=== PATIENT | male | born 1960 | race Caucasian/White ===

== ENCOUNTER → 2020-03-07 13:24 | Outpatient (BNVA) | payer OTHER, SELFPAY | PROVIDERS: Family Provider Internal Medicine; PCP Internal Medicine; Referring Provider Family Medicine; Visit Provider Anesthesiology Pain Medicine | DX: C34.82 Malignant neoplasm of overlapping sites of left bronchus and lung (principal); M54.9 Dorsalgia, unspecified; I10 Essential (primary) hypertension; I25.10 Atherosclerotic heart disease of native coronary artery without angina pectoris; F17.210 Nicotine dependence, cigarettes, uncomplicated; Z79.891 Long term (current) use of opiate analgesic | CPT/HCPCS: 99204 ==

== ENCOUNTER 2020-03-15 12:17 | Emergency (ER) | payer OTHER, SELFPAY ==
[2020-03-15 12:50] VITALS: BP 162/94; PULSE 98; RESP 18; TEMP 36.6; O2SAT 98; BMI 18.6
--- NOTE | 2020-03-15 12:57 | CTR_ITS ---
PROCEDURE INFORMATION: Exam: CT Angiography Chest With Contrast Exam date and time: 03/15/2020 1:45 PM Age: 60 years old Clinical indication: Cough with hemorrhage; Prior surgery; Surgery date: 6+ months; Surgery type: L lung; Patient HX: HX of lung CA now w hemoptysis and SOB; Additional info: SOB, hemoptysis TECHNIQUE: Imaging protocol: Computed tomographic angiography of the chest with intravenous contrast. 3D rendering: MIP and/or 3D reconstructed images were created by the technologist. Radiation optimization: All CT scans at this facility use at least one of these dose optimization techniques: automated exposure control; mA and/or kV adjustment per patient size (includes targeted exams where dose is matched to clinical indication); or iterative reconstruction. Contrast material: OMNI 350; Contrast volume: 95 ml; Contrast route: 20G; COMPARISON: CTA Chest-Pulmonary Emb [id number] 12/04/2018 10:29 AM RADIATION DOSE METRICS: Total DLP: 541.44 mGy-cm FINDINGS: Pulmonary arteries: Normal. No pulmonary emboli. Aorta: Unremarkable. No aortic aneurysm. No aortic dissection. Lungs: Prior left pneumonectomy. Pronounced emphysema in the remaining right lung, especially the right upper lobe. 4.5 mm calcified granuloma right lung base. No acute infiltrate or worrisome pulmonary mass. Pleural space: Unremarkable. No pneumothorax. No pleural effusion. Heart: Unremarkable. No cardiomegaly. No pericardial effusion. Lymph nodes: Partially calcified right hilar and mediastinal lymph nodes. Bones/joints: Unremarkable. No acute fracture. Soft tissues: Unremarkable. CT/CT angio chest PE protcl [id number] IMPRESSION: 1.) No acute PE or acute infiltrate evident. 2.) Prior left pneumonectomy. Emphysema. Radiation Dose CTDIVOL = (mGy): DLP = 541.44 (mGy-cm)
--- NOTE | 2020-03-15 12:57 | XRR_ITS ---
PROCEDURE INFORMATION: Exam: XR Chest, 1 View Exam date and time: 03/15/2020 1:07 PM Age: 60 years old Clinical indication: Dyspnea; Prior surgery; Surgery date: 6+ months; Surgery type: Lung; Additional info: SOB, hemoptysis TECHNIQUE: Imaging protocol: XR of the chest Views: 1 view. COMPARISON: CR Chest 1 [place] [id number] 12/04/2018 9:57 AM FINDINGS: Lungs: There are small calcified pulmonary nodules in the right lower lung, as seen on prior chest CT 12/04/2018. There is marked centrilobular emphysema with hyperlucency in the apices, greatest in the left hemithorax. Left pneumonectomy. Pleural space: No pneumothorax. No pleural effusion. Heart/Mediastinum: Cardiomediastinal contours are obscured. There is marked leftward mediastinal shift. Bones/joints: Bones are unremarkable. XR/XR chest 1V portable [id number] IMPRESSION: 1. No acute findings. 2. Left pneumonectomy. Severe centrilobular emphysema. No consolidation.
--- NOTE | 2020-03-15 13:32 | ED_ITS ---
HPI - General Adult General: Chief complaint: General Medical Stated complaint: coughing up blood Time Seen by Provider: 03/15/20 12:56 History of Present Illness: HPI narrative: This patient is a 60 year old male presenting with a complaint of coughing up blood. he reports that this has been happening for about a month - he has had 4 or 5 days during the month when it happens multiple times each day. The blood is in quarter or half dollar sized clots. He is very nonchalant about it, and says that his made him come in. He has a history of lung cancer and had his left lung removed in 2007. He continues to smoke 2 packs per day. He follows with a world travel counselor in [place]. Today he has coughed up 4 or 5 good sized clots. He complains of pain all over and says that is his normal day to day pain. He is on plavix and has a history of bad heart disease as well. Onset (ago): month(s) Associated symptoms: Reports chest pain, dyspnea and malaise; Deny headache(s), nausea, rash or vomiting Review of Systems General: Reports: 10 or more systems reviewed and unremarkable except in HPI and below Const: Reports: fatigue and malaise; Denies: fever(s) or chills Eyes: Denies: change in vision ENMT: Denies: odynophagia Card: Reports: chest pain; Denies: swelling of feet/ankles Resp: Reports: dyspnea, productive cough and hemoptysis GI: Denies: abdominal pain, nausea or vomiting : Denies: flank pain Musc: Denies: neck pain or back pain Skin/Breast: Denies: rash Neuro: Denies: headache(s), numbness in extremities or weakness in extremities [place]/Lymph: Denies: easy bruising or easy bleeding PFSH ED PFSH: Medical History Cardiac arrhythmia COPD (chronic obstructive pulmonary disease) Coronary artery disease Crohn disease Fatigue Hyperlipemia Hypertension Lung cancer Surgical History History of appendectomy History of lung surgery Hx of tonsillectomy Family History Other Cancer Diabetes Social History Smoking and tobacco status: current every day smoker Alcohol intake: never Physical Exam Const: COMMON NORMALS: no acute distress, patient oriented x3, no limitations and alert GENERAL APPEARANCE: cooperative and comfortable HENMT: HEAD & SCALP: normal to inspection FACE & SINUS: normal facial exam Eye: GENERAL EYE: appearance normal, both eyes and all related structures Neck/C-Spine: COMMON NORMALS: supple, no meningeal signs and no JVD Chest: COMMONS NORMALS: normal inspection of the chest Resp: COMMON NORMALS: normal respiratory effort and No use of accessory muscles AUSCULTATION: breath sounds absent on th left Cardio: COMMON NORMALS: no JVD, regular rate, regular rhythm and No murmurs present (Cardio) RATE: regular rate RHYTHM: regular rhythm GI: COMMON NORMALS: Normal to inspection, nondistended, normoactive bowel sounds present, Soft to palpation and non-tender INSPECTION: Yes normal to inspection AUSCULTATION: Yes normoactive bowel sounds PALPATION: Yes Soft to palpation Back/Pelvis: COMMON NORMALS: thoracic and lumbar spine normal to inspection Extremity: COMMON NORMALS: normal to inspection Neuro: COMMON NORMALS: patient oriented x3, moves all extremities, no focal motor deficits and no sensory deficits noted SENSORIUM/ORIENTATION: Yes alert MENINGEAL SIGNS: Yes no meningeal signs Psych: COMMON NORMALS: mental status grossly normal, cooperative and normal affect Skin: COMMON NORMALS: no rashes or lesions noted and turgor normal GENERAL SKIN EXAM: no rashes or lesions noted and turgor normal Course ED course: Patient was stable in the ED. CT did not show any findings to explain the hemoptysis. We discussed that it might possibly be coming from sinuses. He understands the need to follow-up for further evaluation and an ENT exam. He wanted to go home and was kind of irritated to be here in the first place and had only come in because his family made him. Vital Signs: Vital signs: Vital Signs Temperature 97.9 F 03/15/20 12:50 Pulse Rate 101 H 03/15/20 15:51 Respiratory Rate 20 H 03/15/20 15:51 Blood Pressure 183/101 03/15/20 15:51 Pulse Oximetry 98 03/15/20 15:51 MDM - General Adult Lab Data: Labs: Lab Results 03/15/20 03/15/20 03/15/20 Range/Units 13:15 13:15 13:15 WBC 9.7 (4.0-10.0) 10^3/ uL RBC 4.73 (4.1-5.3) 10^6/u L Hgb 14.9 (11.7-16.6) g/dL Hct 47.0 (42.0-52.0) % MCV 99.4 H (80-94) fL MCH 31.5 (28.0-34.0) pg MCHC 31.7 (30.0-36.0) g/dL RDW 14.4 (12.1-15.1) % Plt Count 243 (130-400) 10^3/c mm MPV 10.1 (7.4-10.4) fL Neut % (Auto) 73.7 % Lymph % (Auto) 18.3 % [place] % (Auto) 6.2 % Eos % (Auto) 0.8 % Baso % (Auto) 0.6 % Neut # (Auto) 7.2 (1.8-7.7) 10^3/u L Lymph # (Auto) 1.8 (0.8-4.8) 10^3/u L [place] # (Auto) 0.6 (0.2-0.9) 10^3/u L Eos # (Auto) 0.1 (0.0-0.8) 10^3/u L Baso # (Auto) 0.1 (0.0-0.1) 10^3/u L Nucleated RBC % (a uto) 0 % Nucleated RBCs # 0.0 /100WBC PT 11.90 (10.5-13.3) SECO NDS INR 0.86 (0.8-1.2) Sodium 137 (136-145) mmol/L Potassium 4.0 (3.5-5.1) mmol/L Chloride 101 (98-107) mmol/L Carbon Dioxide 23 (22-29) mmol/L Anion Gap 17.0 (5-19) BUN 8 (8-23) mg/dL Creatinine 0.8 (0.7-1.2) mg/dL GFR Calculation 98.0 (90-130) mL/min Glucose 170 H (65-115) mg/dL Calculated Osmolal ity 284 L (285-295) mOsm/k g Lactic Acid (0.5-2.2) mmol/L Calcium 10.3 (8.5-10.5) mg/dL Total Bilirubin 0.4 (0.15-1.2) mg/dL AST 17 (0-40) U/L ALT 10 (0-41) U/L Alkaline Phosphata se 57 (40-130) IU/L Total Protein 7.4 (6.6-8.7) g/dL Albumin 4.4 (3.5-5.2) g/dL Globulin 3.0 (1.3-4.6) g/dL Blood Type Rho(D) Type Antibody Screen 03/15/20 03/15/20 Range/Units 13:20 14:30 WBC (4.0-10.0) 10^3/ uL RBC (4.1-5.3) 10^6/u L Hgb (11.7-16.6) g/dL Hct (42.0-52.0) % MCV (80-94) fL MCH (28.0-34.0) pg MCHC (30.0-36.0) g/dL RDW (12.1-15.1) % Plt Count (130-400) 10^3/c mm MPV (7.4-10.4) fL Neut % (Auto) % Lymph % (Auto) % [place] % (Auto) % Eos % (Auto) % Baso % (Auto) % Neut # (Auto) (1.8-7.7) 10^3/u L Lymph # (Auto) (0.8-4.8) 10^3/u L [place] # (Auto) (0.2-0.9) 10^3/u L Eos # (Auto) (0.0-0.8) 10^3/u L Baso # (Auto) (0.0-0.1) 10^3/u L Nucleated RBC % (a uto) % Nucleated RBCs # /100WBC PT (10.5-13.3) SECO NDS INR (0.8-1.2) Sodium (136-145) mmol/L Potassium (3.5-5.1) mmol/L Chloride (98-107) mmol/L Carbon Dioxide (22-29) mmol/L Anion Gap (5-19) BUN (8-23) mg/dL Creatinine (0.7-1.2) mg/dL GFR Calculation (90-130) mL/min Glucose (65-115) mg/dL Calculated Osmolal ity (285-295) mOsm/k g Lactic Acid 1.4 (0.5-2.2) mmol/L Calcium (8.5-10.5) mg/dL Total Bilirubin (0.15-1.2) mg/dL AST (0-40) U/L ALT (0-41) U/L Alkaline Phosphata se (40-130) IU/L Total Protein (6.6-8.7) g/dL Albumin (3.5-5.2) g/dL Globulin (1.3-4.6) g/dL Blood Type A Positive Rho(D) Type Positive Antibody Screen Negative Discharge Plan Discharge Patient Disposition: Home, Self-Care Clinical Impression: Hemoptysis Condition: Stable Prescriptions: No Action hydralazine 25 mg tablet 25 mg PO TID 30 Days Qty: 90 RF: 5 amlodipine 10 mg tablet 10 mg PO DAILY RF: 0 ranolazine [Ranexa] 1,000 mg tablet extended release 12 hr 1,000 mg PO BID RF: 0 nitroglycerin [Nitrostat] 0.4 mg tablet, sublingual 0.4 mg SUBLINGUAL Q5M PRN (Reason: Chest Pain) RF: 0 isosorbide mononitrate 120 mg tablet extended release 24 hr 90 mg PO DAILY RF: 0 atorvastatin 80 mg tablet 80 mg PO DAILY RF: 0 ropinirole 1 mg tablet 3 mg PO DAILY RF: 0 mirtazapine 30 mg tablet 30 mg PO DAILY RF: 0 guaifenesin 400 mg tablet 400 mg PO Q4H PRN (Reason: Congestion) RF: 0 cholecalciferol (vitamin D3) 2,000 unit tablet 2,000 unit PO DAILY RF: 0 albuterol sulfate [Proventil HFA] 90 mcg/actuation HFA aerosol inhaler 2 puff INHALATION QID PRN (Reason: Shortness Of Breath) RF: 0 clopidogrel 75 mg tablet 75 mg PO DAILY RF: 0 tamsulosin 0.4 mg capsule 0.4 mg PO DAILY RF: 0 aspirin 81 mg tablet,delayed release (DR/EC) 81 mg PO DAILY RF: 0 metoprolol tartrate 50 mg tablet 50 mg PO BID RF: 0 Spiriva Respimat 2.5 mcg/actuation mist 2 puff INHALATION QAM RF: 0 budesonide-formoterol 160-4.5 mcg/actuation HFA aerosol inhaler 2 puff INHALATION BID RF: 0 montelukast 10 mg tablet 10 mg PO DAILY RF: 0 hydrocodone-acetaminophen 7.5-325 mg tablet 1 tab PO QID PRN (Reason: cancer pain) 30 Days Qty: 120 RF: 0 lisinopril 40 mg Tablet 40 mg PO DAILY RF: 0 Creon 24,000-76,000 -120,000 unit Capsule,Delayed Release(Dr/Ec) 2 cap PO TID RF: 0 Referrals: [facility] [Primary Care Provider] - Discharge Diet: Usual diet Discharge Activity: Resume usual activity Patient Instructions: Acute Hemoptysis (ED) Activity Restrictions/Additional Instructions: Call your world travel counselor on Tuesday to discuss your symptoms and follow up. Also call your primary care physician to discuss follow up with ENT as the blood could be coming from your sinuses rather than your lungs. Return to the ED if worsening symptoms including continuous bleeding, shortness of breath, fever. Discharge Date/Time: 03/15/20 15:53 Coding Level of Care Code ED [employer] Legal Secretary for Ronald Fwremi Exam Comprehensive
[2020-03-15 13:34] LABS: Basophils # 0.1 10^3/uL (0.0-0.1); Basophils % 0.6 %; Eosinophils # 0.1 10^3/uL (0.0-0.8); Eosinophils % 0.8 %; Hemoglobin 14.9 g/dL (11.7-16.6); Lymphocytes # 1.8 10^3/uL (0.8-4.8); Lymphocytes % 18.3 %; Mean Corpuscular HGB Conc 31.7 g/dL (30.0-36.0); Mean Corpuscular Hemoglobin 31.5 pg (28.0-34.0); Mean Corpuscular Volume 99.4 fL (80-94); Mean Platelet Volume 10.1 fL (7.4-10.4); Monocytes # 0.6 10^3/uL (0.2-0.9); Monocytes % 6.2 %; Neutrophils # 7.2 10^3/uL (1.8-7.7); Neutrophils % 73.7 %; Nucleated Red Blood Cells % 0 %; Platelet Count 243 10^3/cmm (130-400); Red Blood Count 4.73 10^6/uL (4.1-5.3); Red Cell Distribution Width 14.4 % (12.1-15.1); White Blood Count 9.7 10^3/uL (4.0-10.0)
[2020-03-15 13:43] LABS: INR 0.86 (0.8-1.2)
[2020-03-15 13:52] LABS: Alanine Aminotransferase 10 U/L (0-41); Albumin Level 4.4 g/dL (3.5-5.2); Alkaline Phosphatase 57 IU/L (40-130); Aspartate Amino Transferase 17 U/L (0-40); Blood Urea Nitrogen 8 mg/dL (8-23); Calcium 10.3 mg/dL (8.5-10.5); Carbon Dioxide 23 mmol/L (22-29); Chloride 101 mmol/L (98-107); Glucose 170 mg/dL (65-115); Osmolality Calculated 284 mOsm/kg (285-295); Sodium 137 mmol/L (136-145); Total Bilirubin 0.4 mg/dL (0.15-1.2); Total Protein 7.4 g/dL (6.6-8.7)
--- NOTE | 2020-03-15 14:14 | PC.NURSE ---
patient to ct
[2020-03-15] MEDS: iohexol 350 mg/mL 100 mL Btl IV (14:18)
[2020-03-15 14:56] LABS: Lactic Sepsis W/Reflex 1.4 mmol/L (0.5-2.2)
[2020-03-15 15:51] VITALS: BP 183/101; PULSE 101; RESP 20; O2SAT 98
== END 2020-03-15 15:53 | disposition home or self-care (01) ==
PROVIDERS: Emergency Provider Emergency Medicine
DX: R04.2 Hemoptysis (principal); Z79.02 Long term (current) use of antithrombotics/antiplatelets; Z79.82 Long term (current) use of aspirin; J44.9 Chronic obstructive pulmonary disease, unspecified; I25.10 Atherosclerotic heart disease of native coronary artery without angina pectoris; E78.5 Hyperlipidemia, unspecified; I10 Essential (primary) hypertension; Z85.118 Personal history of other malignant neoplasm of bronchus and lung; F17.210 Nicotine dependence, cigarettes, uncomplicated
CPT/HCPCS: 12345; 36415; 71045; 71275; 80053; 83605; 85025; 85610; 86850; 86900; 99282; 99283; Q9967

== ENCOUNTER 2020-04-29 07:35 | Day surgery (SDC) | payer OTHER, SELFPAY ==
[2020-04-28 11:32] VITALS: BMI 18.9
[2020-04-29] MEDS: sodium chloride 0.9% 1,000 ML 30 ML IV ×2 (07:45→08:19)
[2020-04-29 08:00] VITALS: BP 147/87; PULSE 98; RESP 18; TEMP 36.1; O2SAT 98
--- NOTE | 2020-04-29 08:29 | ANES.PREANE2 ---
Pre-Anesthetic Assessment Pre-Anesthetic Assessment: Height/Weight: Height 1.78 m Weight 59.874 kg Temp Pulse Resp BP Pulse Ox 97 F L 98 18 147/87 98 04/29/20 08:00 04/29/20 08:00 04/29/20 08:00 04/29/20 08:00 04/29/20 08:00 Preop Diagnosis: gi Proposed Procedure: Operation Date: 04/29/20 09:00 Proposed Procedures p EGD/Colon 58528 22602 K92.0 K92.1(Not Applicable) - Yung Randolph MD s Colonoscopy(Not Applicable) - Yung Randolph MD Familial anesthetic complications: None plavix on Was Beta Bernadette taken within 24 hours: Yes Last intake: Intake Last Liquid Date 04/28/20 Last Liquid Time 22:00 Last Solid Date 04/27/20 Last Solid Time 20:00 Social: Social History: Tobacco and No alcohol Exam: Pre-Anes Outpt Exam: alert, oriented x 3, clear to auscultation bilaterally and regular rate & rhythm Airway: Cervical ROM: WNL MP: 1 Dentition: Other (edentulous) Pulmonary: Pulmonary: COPD, 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, 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 and 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 Comments: one lung, s/p pneumectomy for lung cancer CV/HEM: CV/HEM: CAD (3 stents (> 1 hr)), HTN and PA Metabolic: Metabolic: None reported Musc/skel: Musc/skel: None reported Neuropsych: Neuropsych: None reported Anesthetic Plan: ASA status: 3 Anesthesia: MAC Other: POM mask Risk of > 500 ml blood loss (7ml/kg in children): No Meds/Allergies Current Medications: Current Medications Generic Name Dose Route Start Last Admin Trade Name Freq PRN Reason Stop Dose Admin Sodium Chloride 1,000 mls @ 30 ml s/hr 04/28/20 09:45 04/29/20 08:19 Sodium Chloride 0.9% IV 30 mls/hr .Q24H FRANDY Administration PFSH Anesthesia PFSH: Medical History Cardiac arrhythmia COPD (chronic obstructive pulmonary disease) Coronary artery disease Crohn disease Fatigue Hyperlipemia Hypertension Lung cancer Pancreatitis PVD (peripheral vascular disease) Surgical History H/O circumcision H/O colonoscopy couple of yrs ago H/O esophagogastroduodenoscopy couple of yrs ago H/O heart artery stent History of appendectomy History of lung surgery Hx of tonsillectomy Family History Other Cancer Diabetes Denies family history of Anesthesia complication Bleeding disorder Social History Smoking and tobacco status: current every day smoker Alcohol intake: never Household members: spouse Marital status: Current occupational status: disabled History of recent travel: Yes ([employer]) Out of state: No Out of country: No Data Anesthesia Cardiac Studies: No Data to Display
--- NOTE | 2020-04-29 09:15 | W.PM.OPSUD ---
Surgery/Procedure H&P Update DATE OF PROCEDURE: April 29, 2020 DATE H&P PERFORMED: 04/21/20 H&P UPDATE INFORMATION: I have reviewed H&P completed within last 30 days, I have examined patient prior to procedure and No changes to prior documentation PREOP DIAGNOSIS: gi PLANNED PROCEDURE: Operation Date: 04/29/20 09:00 Proposed Procedures p EGD/Colon 42079 36322 K92.0 K92.1(Not Applicable) - Yung Randolph MD s Colonoscopy(Not Applicable) - Yung Randolph MD
[2020-04-29 09:50] VITALS: BP 101/68; PULSE 85; RESP 16; TEMP 36.1; O2SAT 99
[2020-04-29 09:57] VITALS: BP 112/72; PULSE 96; RESP 18; O2SAT 97
== END 2020-04-29 10:05 | disposition home or self-care (01) ==
PROVIDERS: Visit Provider Surgery
PROC: 0DJ08ZZ Inspection of Upper Intestinal Tract, Via Natural or Artificial Opening Endoscopic (ICD-10-PCS; CPT 43235; principal; 2020-04-29 09:00)
PROC: 0DJD8ZZ Inspection of Lower Intestinal Tract, Via Natural or Artificial Opening Endoscopic (ICD-10-PCS; CPT 45378; 2020-04-29 09:00)
DX: K92.1 Melena (principal); K92.0 Hematemesis; K57.30 Diverticulosis of large intestine without perforation or abscess without bleeding; K29.70 Gastritis, unspecified, without bleeding; J44.9 Chronic obstructive pulmonary disease, unspecified; I25.10 Atherosclerotic heart disease of native coronary artery without angina pectoris; Z95.5 Presence of coronary angioplasty implant and graft; I10 Essential (primary) hypertension; I25.2 Old myocardial infarction; E78.5 Hyperlipidemia, unspecified; F17.210 Nicotine dependence, cigarettes, uncomplicated
CPT/HCPCS: 12345; 43235; 45378; J7030

== ENCOUNTER 2020-09-24 14:25 | Outpatient (CLI) | payer OTHER, SELFPAY ==
--- NOTE | 2020-09-24 14:41 | CT_ITS ---
WS: [id number] CT scan of the chest with IV contrast, additional two-dimensional coronal and sagittal reconstruction was performed. 09/24/2020 Clinical Data: X-RAY FOLLOW UP, ENCOUNTER FOR OTHER SPECIFIED SPECIAL Comparison: CTA chest, 03/15/2020. DLP: 549.[address] scans at [facility] use at least one of these dose optimization techniques: automat ed exposure control; mA and/or kV adjustment per patient size (includes targeted exams where dose is matched to clinical indication); or iterative reconstruction. Findings: No nodules, masses or effusions are seen. A left pneumonectomy has been performed. No tumor recurrenc e is seen. No pneumonia or pneumothorax is present. There is shift of the heart and mediastinum from right to left. The heart size is normal with no pericardial effusion. The pulmonary arterial system a nd thoracic aorta demonstrate no abnormalities or dilatations. The thyroid gland shows normal enhance ment. The trachea is unremarkable. There is no axillary or significant mediastinal adenopathy. The upper abdomen shows no change from before. The bony thorax demonstrates no metastatic disease. CT/CT chest w con* [id number] Impression: 1. Changes of left pneumonectomy are stable. 2. No evidence of tumor recurrence or metastatic disease. 3. Negative for acute cardiopulmonary disease.
[2020-09-24 15:14] LABS: Blood Urea Nitrogen 10 mg/dL (8-23); Glomerular Filtration Rate 114.3 mL/min (90-130)
[2020-09-24] MEDS: iohexol 300 mg/mL 100 mL Btl IV (15:23)
== END 2020-09-24 14:26 | disposition home or self-care (01) ==
LOC: RADWPI 14:28
PROVIDERS: PCP Family Medicine; Visit Provider Family Medicine
DX: Z98.890 Other specified postprocedural states (principal)
CPT/HCPCS: 71260; 82565; 84520; Q9967

== ENCOUNTER 2021-01-29 12:42 | Emergency (ER) | payer OTHER, MEDICARE, SELFPAY ==
[2021-01-29 12:43] VITALS: BP 173/141; PULSE 118; O2SAT 98; BMI 18.6
--- NOTE | 2021-01-29 12:48 | XR_ITS ---
WS: [id number] Portable AP upright chest, 01/29/2021 Clinical Data: dyspnea/ right chest pian/ Right lung cancer Comparison: Portable chest, 03/15/2020. Findings: The patient has had a left pneumonectomy with shift of the heart and mediastinum from right to left. There are several noncalcified granulomas in the right lower lobe unchanged. No large jayden s are seen. No pneumonia is present. There is no pneumothorax or pleural effusion. The pulmonary vasc ularity is not increased. It is hyperinflation of the right lung. XR/XR chest 1V portable [id number] Impression: 1. Post left pneumonectomy. 2. Negative for acute changes. 3. Hyperinflation and small right lung nodules unchanged.
--- NOTE | 2021-01-29 12:50 | ECG_ITS ---
[facility] Test Date: 2021-01-29 Pat Name: Jose Armando Estrada Department: Room: Gender: Male Home Coordinator: : 1960 Requested By: Jose Kruger Order Number: [id number] Berna MD: Rosaura Lacy M.D. Measurements Intervals [place] Rate: 84 P: 87 TX: 141 QRS: 66 QRSD: 87 T: 37 QT: 351 QTc: 415 Interpretive Statements SINUS RHYTHM SEPTAL MYOCARDIAL INFARCTION , OF INDETERMINATE AGE [40+ ms Q WAVE IN V1/V2] Compared to ECG 12/04/2018 15:59:31 Myocardial infarct finding now present Atrial abnormality no longer present T-wave abnormality no longer present Electronically Signed On 01-29-2021 21:48:21 CDT by Rosaura Lacy M.D. [id number]
[2021-01-29] MEDS: sodium chloride 0.9% 1,000 ML 999 ML IV (13:04)
[2021-01-29 13:05] LABS: Basophils # 0.1 10^3/uL (0.0-0.1); Basophils % 0.8 %; Eosinophils # 0.1 10^3/uL (0.0-0.8); Eosinophils % 0.5 %; Hematocrit 46.4 % (42.0-52.0); Hemoglobin 15.4 g/dL (11.7-16.6); Lymphocytes # 1.8 10^3/uL (0.8-4.8); Lymphocytes % 14.5 %; Mean Corpuscular HGB Conc 33.2 g/dL (30.0-36.0); Mean Corpuscular Hemoglobin 31.5 pg (28.0-34.0); Mean Corpuscular Volume 94.9 fL (80-94); Mean Platelet Volume 10.4 fL (7.4-10.4); Monocytes # 0.9 10^3/uL (0.2-0.9); Neutrophils % 76.6 %; Nucleated Red Blood Cells % 0 %; Platelet Count 338 10^3/cmm (130-400); Red Blood Count 4.89 10^6/uL (4.1-5.3); Red Cell Distribution Width 12.8 % (12.1-15.1); White Blood Count 12.6 10^3/uL (4.0-10.0)
[2021-01-29] MEDS: levofloxacin-dextrose 5 % 750 MG/150 ML PREMIX 100 MG IV (13:09)
[2021-01-29 13:21] LABS: ABG PH Result 7.44 (7.35-7.45); Arterial Blood Gas Hematocrit 40.7 % (42-52); Base Excess ABG 0.9 mmol/L (-2.0-2.0); Blood Gas Operator Identificat GD; Blood Gas Sample Site Brachial, right; Blood Gas Sample Type Arterial; Carboxyhemoglobin 4.1 %THgb (0.4-20.1); HCO3 ABG 24.7 mmol/L (22-26); HGB O2 Sat 93.5 % (95-100); Ionized Calcium Level - ABG 1.2 mmol/L (1.1-1.4); Methemoglobin 0.8 % (0.4-1.5); Oxygen Device NC; Oxygen Saturation ABG 98.3; PO2 ABG 95.2 mmHg (80.0-100.0); Potassium Level - ABG 3.8 mmol/L (3.5-5.0); Total Hemoglobin 13.3 g/dL (14-18)
[2021-01-29 13:22] LABS: Alveolar-Arterial Oxygen Gradi 11.5 mmHg (5-10)
[2021-01-29 13:25] LABS: D Dimer 1.12 ug/mIFEU (0-0.59)
[2021-01-29 13:30] LABS: Troponin(5th) Baseline 20 ng/L (0-15)
[2021-01-29 13:38] LABS: Alanine Aminotransferase 7 U/L (0-41); Albumin Level 4.2 g/dL (3.5-5.2); Alkaline Phosphatase 79 IU/L (40-130); Aspartate Amino Transferase 13 U/L (0-40); Blood Urea Nitrogen 9 mg/dL (8-23); Calcium 9.7 mg/dL (8.5-10.5); Carbon Dioxide 25 mmol/L (22-29); Chloride 101 mmol/L (98-107); Globulin 2.5 g/dL (1.3-4.6); Glucose 133 mg/dL (65-115); NT Pro B Type Natriuretic Pept 736 pg/mL (0-125); Osmolality Calculated 285 mOsm/kg (285-295); Sodium 137 mmol/L (136-145); Thyroid Stimulating Hormone 0.85 uIU/mL (0.27-4.20); Total Bilirubin 0.5 mg/dL (0.15-1.2); Total Protein 6.7 g/dL (6.6-8.7)
[2021-01-29 13:40] LABS: Anion Gap 15.7 (5-19); Potassium 4.7 mmol/L (3.5-5.1)
[2021-01-29 14:28] LABS: Urine Appearance Clear (CLEAR); Urine Color Yellow (Yellow)
[2021-01-29 14:29] LABS: Add Urine Microscopic? YES; Bilirubin Urine 1+ (Negative); Blood Urine 2+ (Negative); Glucose Urine UA Norm (Normal); Ketones Urine Negative (Negative); Leukocyte Esterase Urine Negative (Negative); Nitrate Urine Negative (Negative); Protein Urine Neg (Negative); Urobilinogen Urine 1 mg/dL (Negative); pH Urine 5 (5-7)
[2021-01-29 14:37] LABS: Add Urine Culture? No; Bacteria Urine TRACE /hpf; Mucus Urine 3+ /hpf; Squamous Epithelial Cell Urine 0-4 /hpf (0-5)
--- NOTE | 2021-01-29 14:39 | CT_ITS ---
WS: [id number] CTA OF THE CHEST WITH PULMONARY EMBOLISM PROTOCOL TECHNIQUE: High-resolution contrast enhanced CTA of the chest with coronal and sagittal reformatted i mages with pulmonary embolism protocol. MIP images are also reviewed. CLINICAL INFORMATION: cehst pain. elevated d dimer. h/o left lung pneumonectomy COMPARISON: CT chest September 24, 2020 DLP: 986.[address] scans at [facility] use at least one of these dose optimization techniques: automat ed exposure control; mA and/or kV adjustment per patient size (includes targeted exams where dose is matched to clinical indication); or iterative reconstruction. FINDINGS: Prior postoperative changes left pneumonectomy. Ipsilateral cardiac and mediastinal shift. Heart is w ithin the left mediastinum unchanged. No evidence of pulmonary embolus. Right main and subsegmental pulmonary arteries are normal. Normal caliber thoracic aorta. Aortic calcification. Calcified subcarinal and right hilar lymph nodes . Advanced chronic emphysematous changes. Bronchovascular thickening along the right hilum. Enlarged ri ght hilar lymph nodes nonspecific but may be reactive. Hazy patchy infiltrates within the right lower lobe are new from previous consistent with pneumonia. A few calcified granulomas. Unchanged left adr enal adenoma measuring 2.[address]/CT angio chest PE protcl [id number] IMPRESSION: 1. Prior postoperative changes left pneumonectomy with cardiac and mediastinal shift. This is unchanged from the prior studies. 2. No evidence of pulmonary embolus. 3. Normal caliber thoracic aorta. 4. Patchy infiltrates in the right lower lobe are new from September 2020 consi stent with pneumonia. 5. No other significant changes.
[2021-01-29 14:46] LABS: Lactate (Lactic Acid level) 0.8 mmol/L (0.5-2.2)
[2021-01-29 14:48] LABS: Troponin 5 2HR 14.73 ng/L (0-15)
--- NOTE | 2021-01-29 14:50 | ECG_ITS ---
[facility] Test Date: 2021-01-29 Pat Name: Jose Armando Estrada Department: Room: Gender: Male Spa Attendant: : 1960 Requested By: Jose Kruger Order Number: [id number] Berna MD: Rosaura Lacy M.D. Measurements Intervals [place] Rate: 77 P: 92 SD: 152 QRS: 113 QRSD: 81 T: 48 QT: 371 QTc: 422 Interpretive Statements SINUS RHYTHM POSSIBLE RIGHT VENTRICULAR HYPERTROPHY [SOME/ALL OF: PROMINENT R IN V1, LATE TRANSITION, RAD, GRACIA, SSS] SEPTAL MYOCARDIAL INFARCTION , OF INDETERMINATE AGE [40+ ms Q WAVE IN V1/V2] Compared to ECG 01/29/2021 13:55:30 No significant changes Electronically Signed On 01-29-2021 21:55:29 CDT by Rosaura Lacy M.D. [id number]
[2021-01-29 14:52] LABS: Troponin 5 2HR Delta -5.27 ABS# (0-10)
[2021-01-29 15:34] LABS: SARS Covid-2 Antigen Negative (Negative)
[2021-01-29] MEDS: iohexol 350 mg/mL 100 mL Btl IV (15:41)
[2021-01-29 16:58] VITALS: BP 152/87; PULSE 74; RESP 16; O2SAT 100
--- NOTE | 2021-01-29 17:05 | ED_ITS ---
HPI - SOB/Dyspnea General: Chief Complaint: Shortness of Breath/Dyspnea Stated Complaint: CP/Cough History of Present Illness: HPI Narrative: The patient is a 60-year-old male with past medical history left lung pneumonectomy for lung cancer and COPD comes to the ER complaining of increased cough and shortness of breath for the past couple days. He says he went to his primary care doctor at the [facility] who sent him to the ER for evaluation. He normally wears 2 L oxygen and he is currently wearing 3 L. Says he feels like he has pneumonia and needs antibiotics. MD elicited complaint: shortness of breath and cough Associated symptoms: Deny abdominal pain, chest pain, dizziness, extremity pain, orthopnea, palpitations or polyuria Review of Systems General: Reports: 10 or more systems reviewed and unremarkable except in HPI and below Const: Denies: fatigue Eyes: Denies: change in vision, blurry vision or eye redness ENMT: Denies: throat pain, swelling of lips/tongue, ear or mastoid pain or nasal congestion Card: Denies: chest pain, palpitations, irregular heart rhythm, edema, dyspnea on exertion or orthopnea Resp: Reports: dyspnea and productive cough; Denies: non-productive cough GI: Denies: abdominal pain, diarrhea or GI cramping : Denies: flank pain, urinary frequency or urinary urgency Musc: Denies: neck pain, back pain, extremity pain, joint pain, joint redness, limited range of motion or muscle weakness Skin/Breast: Denies: rash, pruritus, erythema, skin pain or skin tenderness Neuro: Denies: headache(s), numbness in extremities, weakness in extremities, sensory changes, difficulty walking, dizziness, confusion or Slurred speech present Psych: Denies: anxiety or depression Endo: Denies: polyuria All/Imm: Denies: urticaria, throat swelling or tongue swelling PFSH ED PFSH: Medical History (Updated 01/29/21 @ 16:54 by Jose Kruger MD) Atherosclerotic heart disease of [place] coronary artery with other forms of angina pectoris Atypical chest pain Cardiac arrhythmia COPD (chronic obstructive pulmonary disease) Coronary artery disease Crohn disease Fatigue Hyperlipemia Hypertension Lung cancer Pancreatitis PVD (peripheral vascular disease) Surgical History H/O circumcision H/O colonoscopy (04/29/20) sigmoid diverticulosis H/O esophagogastroduodenoscopy (04/29/20) mild gastritis H/O heart artery stent History of appendectomy History of lung surgery Hx of tonsillectomy Family History Other Cancer Diabetes Denies family history of Anesthesia complication Bleeding disorder Social History Smoking and tobacco status: current every day smoker Alcohol intake: never Household members: spouse Marital status: Current occupational status: disabled History of recent travel: Yes ([employer]) Out of state: No Out of country: No Physical Exam Const: COMMON NORMALS: no acute distress, average body habitus, patient oriented x3, no limitations, healthy appearing, alert and well nourished GENERAL APPEARANCE: cooperative, comfortable, well kempt and well developed ORIENTATION/CONSCIOUSNESS: Yes awake, Yes oriented to person, Yes oriented to place and Yes oriented to time HENMT: COMMON NORMALS: normocephalic, external ears normal and Normal external nose present HEAD & SCALP: normal to inspection and normocephalic NOSE: Normal external nose present EXTERNAL EAR: Yes external ears normal MOUTH: Normal oral and palatal mucosa present THROAT: posterior oropharynx normal Eye: COMMON NORMALS: Equal, round and reactive pupils present and EOMs intact bilaterally GENERAL EYE: appearance normal, both eyes and all related structures PUPIL: Yes Equal, round and reactive pupils present Neck/C-Spine: COMMON NORMALS: full ROM, no lymphadenopathy, no meningeal signs and no JVD GENERAL: Yes normal visual inspection Lymph: LYMPHATIC: no lymphadenopathy noted Chest: COMMONS NORMALS: normal inspection of the chest and normal palpation of entire chest wall Resp: COMMON NORMALS: normal respiratory effort, No retractions and No use of accessory muscles EFFORT & INSPECTION: Yes able to speak in complete sentences OTHER: Absent breath sounds on the left side from pneumonectomy. Right lower lobe mild wheezing Cardio: COMMON NORMALS: no JVD, regular rate, regular rhythm, S1 normal heart sound present, S2 normal heart sound present and Peripheral pulses 2+ throughout RATE: regular rate RHYTHM: regular rhythm HEART SOUNDS: S1 normal heart sound present and S2 normal heart sound present PERIPHERAL PULSES: Peripheral pulses 2+ throughout GI: COMMON NORMALS: Normal to inspection, nondistended, normoactive bowel sounds present, Soft to palpation, non-tender and no masses INSPECTION: Yes normal to inspection PALPATION: Yes Soft to palpation : COMMON NORMALS: Yes no CVA tenderness BLADDER/KIDNEY EXAM: Yes no CVA tenderness Back/Pelvis: COMMON NORMALS: no CVA tenderness, thoracic and lumbar spine normal to inspection, no thoracic nor lumbar tenderness and thoraco-lumbar ROM normal Extremity: COMMON NORMALS: normal to inspection, full ROM, capillary refill normal, no joint enlargement and no pedal edema GENERAL: Yes normal exam except as noted Neuro: COMMON NORMALS: patient oriented x3, CN's II-XII intact bilaterally, moves all extremities, no focal motor deficits, no sensory deficits noted and gait normal SENSORIUM/ORIENTATION: Yes alert, Yes oriented to person, Yes oriented to place and Yes oriented to time MENINGEAL SIGNS: Yes no meningeal signs Psych: COMMON NORMALS: mental status grossly normal, Normal thought process present, cooperative, normal affect and speech normal APPEARANCE: Yes well kempt ATTITUDE: Yes calm SPEECH: Yes normal speech THOUGHT PROCESS: Normal thought process present Skin: COMMON NORMALS: no rashes or lesions noted GENERAL SKIN EXAM: no rashes or lesions noted Course Vital Signs: Vital signs: Vital Signs Pulse Rate 75 01/29/21 17:43 Respiratory Rate 16 01/29/21 17:43 Blood Pressure 148/81 01/29/21 17:43 Pulse Oximetry 100 01/29/21 17:43 MDM - SOB/Dyspnea MDM Narrative: Medical decision making narrative: The patient has COPD and came to the ER complaining of productive cough. Also has history of left-sided pneumonectomy from lung cancer. He knows that he has some spots on his right lung that are likely cancer as well. Chest x-ray was negative. CT angiogram was negative for pulmonary embolism however did reveal a right lower lobe pneumonia which is consistent with his symptoms. He also has COPD and possibly having an exacerbation. He was given IV steroids, a DuoNeb, and IV levofloxacin. His symptoms improved greatly and he was back to his normal 2 L oxygen. He does not wear it at home and is noncompliant with it except when he feels short of breath. He was discharged with Medrol Dosepak, levofloxacin, albuterol inhaler. he left in stable condition and will return if his symptoms worsen. I told him to have a short fuse to return to the ER because he only has one lung. He understands and will follow up with primary care physician in a couple days to monitor improvement and return with early signs of worsening symptoms Lab Data: Labs: Lab Results 01/29/21 01/29/21 01/29/21 Range/Units 12:34 12:34 12:34 WBC 12.6 H (4.0-10.0) 10^3/ uL RBC 4.89 (4.1-5.3) 10^6/u L Hgb 15.4 (11.7-16.6) g/dL Hct 46.4 (42.0-52.0) % MCV 94.9 H (80-94) fL MCH 31.5 (28.0-34.0) pg MCHC 33.2 (30.0-36.0) g/dL RDW 12.8 (12.1-15.1) % Plt Count 338 (130-400) 10^3/c mm MPV 10.4 (7.4-10.4) fL Neut % (Auto) 76.6 % Lymph % (Auto) 14.5 % Sutter % (Auto) 7.0 % Eos % (Auto) 0.5 % Baso % (Auto) 0.8 % Neut # (Auto) 9.70 H (1.8-7.7) 10^3/u L Lymph # (Auto) 1.8 (0.8-4.8) 10^3/u L Sutter # (Auto) 0.9 (0.2-0.9) 10^3/u L Eos # (Auto) 0.1 (0.0-0.8) 10^3/u L Baso # (Auto) 0.1 (0.0-0.1) 10^3/u L Nucleated RBC % (a uto) 0 % Nucleated RBCs # 0.0 /100WBC D-Dimer 1.12 H (0-0.59) ug/mIFE U Specimen Type Sample Site ABG pH (7.35-7.45) ABG pCO2 (35-45) mmHg ABG pO2 (80.0-100.0) mmH g ABG HCO3 (22-26) mmol/L ABG O2 Saturation ABG Base Excess (-2.0-2.0) mmol/ L Jose Carlos Test A-a O2 Gradient (5-10) mmHg Hematocrit (42-52) % Hgb O2 Saturation (95-100) % Carboxyhemoglobin (0.4-20.1) %THgb Methemoglobin (0.4-1.5) % Total Hemoglobin (14-18) g/dL Ionized Calcium (1.1-1.4) mmol/L O2 Delivery Device O2 Liters/Min % FiO2 % Rn Peritoneal Dialysis ID Sodium 137 (136-145) mmol/L Potassium 4.7 (3.5-5.1) mmol/L Chloride 101 (98-107) mmol/L Carbon Dioxide 25 (22-29) mmol/L Anion Gap 15.7 (5-19) BUN 9 (8-23) mg/dL Creatinine 0.8 (0.7-1.2) mg/dL GFR Calculation 98.0 (90-130) mL/min Glucose 133 H (65-115) mg/dL Calculated Osmolal ity 285 (285-295) mOsm/k g Lactate (0.5-2.2) mmol/L Calcium 9.7 (8.5-10.5) mg/dL Total Bilirubin 0.5 (0.15-1.2) mg/dL AST 13 (0-40) U/L ALT 7 (0-41) U/L Alkaline Phosphata se 79 (40-130) IU/L Troponin T Baselin e (0-15) ng/L Troponin T 120 Min atka (0-15) ng/L Delta Troponin T (0-10) ABS# NT-Pro-B Natriuret Pep 736 H (0-125) pg/mL Total Protein 6.7 (6.6-8.7) g/dL Albumin 4.2 (3.5-5.2) g/dL Globulin 2.5 (1.3-4.6) g/dL TSH 0.85 (0.27-4.20) uIU/ mL Urine Color (Yellow) Urine Appearance (CLEAR) Urine pH (5-7) Ur Specific Gravit y (1.005-1.030) Urine Protein (Negative) Urine Glucose (UA) (Normal) Urine Ketones (Negative) Urine Blood (Negative) Urine Nitrate (Negative) Urine Bilirubin (Negative) Urine Urobilinogen (Negative) mg/dL Ur Leukocyte Deonna ase (Negative) Urine RBC (0-2) /hpf Urine WBC (0-5) /hpf Ur Squamous Epith Cells (0-5) /hpf Amorphous Sediment Urine Bacteria (NONE) /hpf Urine Mucus /hpf SARS-CoV-2 Ag (Rap id) (Negative) 01/29/21 01/29/21 01/29/21 Range/Units 12:34 13:05 14:00 WBC (4.0-10.0) 10^3/ uL RBC (4.1-5.3) 10^6/u L Hgb (11.7-16.6) g/dL Hct (42.0-52.0) % MCV (80-94) fL MCH (28.0-34.0) pg MCHC (30.0-36.0) g/dL RDW (12.1-15.1) % Plt Count (130-400) 10^3/c mm MPV (7.4-10.4) fL Neut % (Auto) % Lymph % (Auto) % Sutter % (Auto) % Eos % (Auto) % Baso % (Auto) % Neut # (Auto) (1.8-7.7) 10^3/u L Lymph # (Auto) (0.8-4.8) 10^3/u L Sutter # (Auto) (0.2-0.9) 10^3/u L Eos # (Auto) (0.0-0.8) 10^3/u L Baso # (Auto) (0.0-0.1) 10^3/u L Nucleated RBC % (a uto) % Nucleated RBCs # /100WBC D-Dimer (0-0.59) ug/mIFE U Specimen Type Arterial Sample Site Brachial, right ABG pH 7.44 (7.35-7.45) ABG pCO2 36.0 (35-45) mmHg ABG pO2 95.2 (80.0-100.0) mmH g ABG HCO3 24.7 (22-26) mmol/L ABG O2 Saturation 98.3 ABG Base Excess 0.9 (-2.0-2.0) mmol/ L Jose Carlos Test N/a A-a O2 Gradient 11.5 H (5-10) mmHg Hematocrit 40.7 L (42-52) % Hgb O2 Saturation 93.5 L (95-100) % Carboxyhemoglobin 4.1 (0.4-20.1) %THgb Methemoglobin 0.8 (0.4-1.5) % Total Hemoglobin 13.3 L (14-18) g/dL Ionized Calcium 1.2 (1.1-1.4) mmol/L O2 Delivery Device Nc O2 Liters/Min 3.0 % FiO2 32.0 % Rn Peritoneal Dialysis ID Gd Sodium 139.0 (136-145) mmol/L Potassium 3.8 (3.5-5.1) mmol/L Chloride (98-107) mmol/L Carbon Dioxide (22-29) mmol/L Anion Gap (5-19) BUN (8-23) mg/dL Creatinine (0.7-1.2) mg/dL GFR Calculation (90-130) mL/min Glucose 137.0 H (65-115) mg/dL Calculated Osmolal ity (285-295) mOsm/k g Lactate (0.5-2.2) mmol/L Calcium (8.5-10.5) mg/dL Total Bilirubin (0.15-1.2) mg/dL AST (0-40) U/L ALT (0-41) U/L Alkaline Phosphata se (40-130) IU/L Troponin T Baselin e 20 H (0-15) ng/L Troponin T 120 Min atka (0-15) ng/L Delta Troponin T (0-10) ABS# NT-Pro-B Natriuret Pep (0-125) pg/mL Total Protein (6.6-8.7) g/dL Albumin (3.5-5.2) g/dL Globulin (1.3-4.6) g/dL TSH (0.27-4.20) uIU/ mL Urine Color Yellow (Yellow) Urine Appearance Clear (CLEAR) Urine pH 5 (5-7) Ur Specific Gravit y 1.020 (1.005-1.030) Urine Protein Neg (Negative) Urine Glucose (UA) Norm (Normal) Urine Ketones Negative (Negative) Urine Blood 2+ H (Negative) Urine Nitrate Negative (Negative) Urine Bilirubin 1+ H (Negative) Urine Urobilinogen 1 H (Negative) mg/dL Ur Leukocyte Deonna ase Negative (Negative) Urine RBC 5-10 H (0-2) /hpf Urine WBC None (0-5) /hpf Ur Squamous Epith Cells 0-4 H (0-5) /hpf Amorphous Sediment Not Reportable Urine Bacteria Trace (NONE) /hpf Urine Mucus 3+ /hpf SARS-CoV-2 Ag (Rap id) (Negative) 01/29/21 01/29/21 01/29/21 Range/Units 14:23 14:23 15:00 WBC (4.0-10.0) 10^3/ uL RBC (4.1-5.3) 10^6/u L Hgb (11.7-16.6) g/dL Hct (42.0-52.0) % MCV (80-94) fL MCH (28.0-34.0) pg MCHC (30.0-36.0) g/dL RDW (12.1-15.1) % Plt Count (130-400) 10^3/c mm MPV (7.4-10.4) fL Neut % (Auto) % Lymph % (Auto) % Sutter % (Auto) % Eos % (Auto) % Baso % (Auto) % Neut # (Auto) (1.8-7.7) 10^3/u L Lymph # (Auto) (0.8-4.8) 10^3/u L Sutter # (Auto) (0.2-0.9) 10^3/u L Eos # (Auto) (0.0-0.8) 10^3/u L Baso # (Auto) (0.0-0.1) 10^3/u L Nucleated RBC % (a uto) % Nucleated RBCs # /100WBC D-Dimer (0-0.59) ug/mIFE U Specimen Type Sample Site ABG pH (7.35-7.45) ABG pCO2 (35-45) mmHg ABG pO2 (80.0-100.0) mmH g ABG HCO3 (22-26) mmol/L ABG O2 Saturation ABG Base Excess (-2.0-2.0) mmol/ L Jose Carlos Test A-a O2 Gradient (5-10) mmHg Hematocrit (42-52) % Hgb O2 Saturation (95-100) % Carboxyhemoglobin (0.4-20.1) %THgb Methemoglobin (0.4-1.5) % Total Hemoglobin (14-18) g/dL Ionized Calcium (1.1-1.4) mmol/L O2 Delivery Device O2 Liters/Min % FiO2 % Rn Peritoneal Dialysis ID Sodium (136-145) mmol/L Potassium (3.5-5.1) mmol/L Chloride (98-107) mmol/L Carbon Dioxide (22-29) mmol/L Anion Gap (5-19) BUN (8-23) mg/dL Creatinine (0.7-1.2) mg/dL GFR Calculation (90-130) mL/min Glucose (65-115) mg/dL Calculated Osmolal ity (285-295) mOsm/k g Lactate 0.8 (0.5-2.2) mmol/L Calcium (8.5-10.5) mg/dL Total Bilirubin (0.15-1.2) mg/dL AST (0-40) U/L ALT (0-41) U/L Alkaline Phosphata se (40-130) IU/L Troponin T Baselin e (0-15) ng/L Troponin T 120 Min atka 14.73 (0-15) ng/L Delta Troponin T -5.27 L (0-10) ABS# NT-Pro-B Natriuret Pep (0-125) pg/mL Total Protein (6.6-8.7) g/dL Albumin (3.5-5.2) g/dL Globulin (1.3-4.6) g/dL TSH (0.27-4.20) uIU/ mL Urine Color (Yellow) Urine Appearance (CLEAR) Urine pH (5-7) Ur Specific Gravit y (1.005-1.030) Urine Protein (Negative) Urine Glucose (UA) (Normal) Urine Ketones (Negative) Urine Blood (Negative) Urine Nitrate (Negative) Urine Bilirubin (Negative) Urine Urobilinogen (Negative) mg/dL Ur Leukocyte Deonna ase (Negative) Urine RBC (0-2) /hpf Urine WBC (0-5) /hpf Ur Squamous Epith Cells (0-5) /hpf Amorphous Sediment Urine Bacteria (NONE) /hpf Urine Mucus /hpf SARS-CoV-2 Ag (Rap id) Negative (Negative) Discharge Plan Discharge Patient Disposition: Home Clinical Impression: Pneumonia, COPD (chronic obstructive pulmonary disease) Condition: Stable Prescriptions: New levofloxacin 750 mg tablet 750 mg PO DAILY 10 Days RF: 0 Medrol (Armando) 4 mg tablets,dose pack See Rx Instructions .ROUTE .COMPLEX Qty: 21 RF: 0 albuterol sulfate 90 mcg/actuation HFA aerosol inhaler 2 inh inhalation Q6H PRN (Reason: shortness of breath or wheezing) 30 Days RF: 0 No Action amlodipine 10 mg tablet 10 mg PO DAILY@22 RF: 0 ranolazine [Ranexa] 1,000 mg tablet extended release 12 hr 1,000 mg PO BID RF: 0 nitroglycerin [Nitrostat] 0.4 mg tablet, sublingual 0.4 mg SUBLINGUAL Q5M PRN (Reason: Chest Pain) RF: 0 atorvastatin 80 mg tablet 80 mg PO DAILY@22 RF: 0 guaifenesin 400 mg tablet 400 mg PO Q4H PRN (Reason: Congestion) RF: 0 cholecalciferol (vitamin D3) 2,000 unit tablet 2,000 unit PO DAILY@22 RF: 0 albuterol sulfate [ProAir HFA] 90 mcg/actuation HFA aerosol inhaler 2 puff INHALATION QID PRN (Reason: Shortness Of Breath) RF: 0 clopidogrel 75 mg tablet 75 mg PO DAILY@22 RF: 0 tamsulosin 0.4 mg capsule 0.4 mg PO DAILY@22 RF: 0 aspirin 81 mg tablet,delayed release (DR/EC) 81 mg PO DAILY@22 RF: 0 Spiriva Respimat 2.5 mcg/actuation mist 2 puff INHALATION QAM RF: 0 budesonide-formoterol 160-4.5 mcg/actuation HFA aerosol inhaler 2 puff INHALATION BID RF: 0 montelukast 10 mg tablet 10 mg PO DAILY@22 RF: 0 lisinopril 40 mg Tablet 20 mg PO DAILY@22 RF: 0 Creon 24,000-76,000 -120,000 unit Capsule,Delayed Release(Dr/Ec) 2 cap PO TID RF: 0 ipratropium-albuterol 0.5 mg-3 mg(2.5 mg base)/3 mL Solution For Nebulization 3 ml INHALATION Q6H PRN (Reason: Shortness Of Breath) RF: 0 albuterol sulfate 2.5 mg /3 mL (0.083 %) Solution For Nebulization 2.5 mg INHALATION Q6H PRN (Reason: Shortness Of Breath) RF: 0 metoprolol tartrate 100 mg Tablet 100 mg PO DAILY@22 RF: 0 ropinirole 3 mg Tablet 3 mg PO DAILY@22 RF: 0 isosorbide mononitrate 60 mg Tablet Extended Release 24 Hr 90 mg PO DAILY@22 RF: 0 Aleve 220 mg Tablet 440 - 660 mg PO PRN RF: 0 mirtazapine 45 mg Tablet 45 mg PO DAILY@22 RF: 0 hydrocodone-acetaminophen 7.5-325 mg tablet 1 tab PO Q6H PRN (Reason: Pain) RF: 0 hydralazine 50 mg tablet 25 mg PO DAILY@22 RF: 0 Discharge Orders: Discharge ED (Routine); Ordered 01/29/21 Ordered By: Jose Kruger Referrals: Sierra Muse MD [Primary Care Provider] - Discharge Diet: Advance as tolerated Discharge Activity: Resume usual activity Patient Instructions: COPD, Bacterial Pneumonia (ED), Opioid Safety Activity Restrictions/Additional Instructions: You have pneumonia of your right lower lung. This is complicated by the fact that you have had your left lung removed. Please take the antibiotics, steroids, and inhaler to help treat this infection. If your symptoms worsen at home please return to the ER immediately as you only have 1 long so you can get worse quite quickly. Follow-up with your primary care physician in 2 days to monitor improvement of your symptoms. Also continue to follow-up with your oncologist as there are some calcified subcarinal and right hilar lymph nodes, there is also bronchovascular thickening along the right hilum and enlarged right hilar lymph nodes as well. These could possibly be cancerous so please discuss with your oncologist. Coding Level of Care Code ED Block Captain for Ronald Oneal
[2021-01-29 17:27] VITALS: BP 148/81; PULSE 75; RESP 16; O2SAT 75
[2021-01-29 17:43] VITALS: BP 148/81; PULSE 75; RESP 16; O2SAT 100
--- NOTE | 2021-01-29 17:45 | PC.NURSE ---
updated vitals on discharged, charted incorrectly during innital discharge
== END 2021-01-29 17:28 | disposition home or self-care (01) ==
PROVIDERS: Emergency Provider Family Medicine; PCP Family Medicine
DX: J44.0 Chronic obstructive pulmonary disease with (acute) lower respiratory infection (principal); J18.9 Pneumonia, unspecified organism; Z79.02 Long term (current) use of antithrombotics/antiplatelets; Z79.82 Long term (current) use of aspirin; I25.10 Atherosclerotic heart disease of native coronary artery without angina pectoris; E78.5 Hyperlipidemia, unspecified; I10 Essential (primary) hypertension; Z85.118 Personal history of other malignant neoplasm of bronchus and lung; F17.210 Nicotine dependence, cigarettes, uncomplicated
CPT/HCPCS: 36600; 71045; 71275; 80051; 80053; 81001; 82330; 82805; 83605; 83880; 84443; 84484; 85025; 85378; 87426; 93005; 96365; 96375; 99284; J1956; J2930; J7030; Q9967

== ENCOUNTER 2021-03-16 10:09 | Outpatient (CLI) | payer OTHER, MEDICARE, MEDICAID, SELFPAY ==
--- NOTE | 2021-03-16 17:31 | ONC FU_ITS ---
Dr. Jose follow up note Patient: Jose Armando Estrada Unit #: [id number]: 1960 Dicatated By: Leoanrd Jose M.D.Date of Visit:Mar 16, 2021 Onc Med Follow-up/Prog Note History of Present Illness: Mr. Jose Armando Estrada, 61-year-old gentleman with a history of poorly differentiated squamous cell carcinoma status post left pneumonectomy done on June 07, 2008, pathology report confirmed poorly differentiated squamous cell carcinoma with tumor diameter of 8.5 cm. Involving upper and lower lobes. 17 parabronchial lymph nodes were negative. Pleura was free of tumor, margin clear, total 24 lymph nodes were examined were negative,, T2 N0 M0 stage Ib and at that time as per medical oncology note patient does not need chemotherapy rather follow-up every 3 to 4 months with lab work of physical exam and chest x-ray. As per patient, he went to [facility] for follow-up where he underwent follow-up chest x-rays, CT scan and PET scan which was done on April 16, 2015 which confirmed status post left pneumonectomy. Previously seen subcentimeter pulmonary nodules are unchanged in size showing no significant FDG activity, likely benign in nature., Mildly hypermetabolic mediastinal lymph nodes, likely benign in nature, mildly diffuse FDG activity seen in descending colon and proximal sigmoid colon with bowel wall thickening likely inflammatory in nature, patient has history of ulcerative colitis, intense FDG activity seen at osteolytic lesion at the right anterior lateral aspect of C2 vertebra with SUV of 6.3, lesion appears unchanged in size compared to CT scan of neck done on February 10, 2012, given the long-term stability, this likely represent benign degenerative cystic changes, less likely metastatic disease. Patient underwent follow-up CT chest in March 2019 which confirmed again left pneumonectomy with shift mediastinum, advanced COPD with hyperexpanded right lung. Scarring right lung similar previous CT scan seen in July 2018. Small nodular densities seen again similar to previous CT scan with the exception of small nodular density in the right apex but similar to ones seen in November 2018 exact etiology unclear., Left adrenal mass which was similar seen on previous CT scans were suspicious adenoma. Patient had a follow-up CT scan of the chest done on September 24, 2020 which shows changes of left pneumonectomy are stable. No evidence of tumor recurrence or metastatic disease. Negative for acute cardiopulmonary disease. Patient recently underwent CTA of the chest with pulmonary embolism protocol for chest pain and elevated D-dimer on January 30, 2021 100 showed postoperative changes left pneumonectomy with cardiac and mediastinal shift. Unchanged. No evidence of pulmonary embolism. Patchy infiltrate in the right lower lobe are new from September 2020 consistent with pneumonia., Unchanged left adrenal adenoma measuring 2.1 cm. Enlarged right hilar lymph node nonspecific but may be reactive., As per patient he was told, his disease may be relapsing and he is concerned and wants to verify whether he has recurrence of disease or not, complaining of hemoptysis off and on, last time was about a month ago but also complaining of nosebleed, and still smoke about a pack a day Denies any headaches, denies any blurred vision double vision denies any new bony pains but chronic muscle skeletal discomfort, denies any weight loss. Denies any fever chills Medications: amLODIPine Besylate 1 Tablet (of 10 mg) Oral daily, Aspirin 81 1 Tablet (of 81 mg) Tablet, chewable Oral daily, Atorvastatin Calcium 1 Tablet (of 80 mg) Oral daily, Cholecalciferol 1 Capsule (of 125 mcg ) Oral daily, Clopidogrel Bisulfate 1 Tablet (of 75 mg) Oral daily, Creon 1 Capsule (of 98323 Units) Capsule Delayed Release Particles Oral t.i.d. & at bedtime, GNP Mucus Relief 1 Tablet (of 400 mg) Oral PRN, Isosorbide Mononitrate ER 1.5 Tablet (of 60 mg) Tablet SR 24 HR Oral daily, Lisinopril 1 Tablet (of 20 mg) Oral daily, Metoprolol Tartrate 1 Tablet (of 100 mg) Oral b.i.d., Mirtazapine 1 Tablet (of 45 mg) Oral daily, Nitroglycerin 1 Tablet (of 0.4 mg) Tablet, sublingual Sublingual PRN, ProAir HFA 2 Puff(s) (of 108 (90 base) mcg/act) Aerosol, solution Inhalation four times a day, Ranexa 1 Tablet (of 1000 mg) Tablet SR 12 HR Oral b.i.d., Requip 1 Tablet (of 3 mg) Oral daily, Spiriva HandiHaler 1 Capsule (of 18 mcg) Inhalation daily, Tamsulosin HCl 1 Carton (of 0.4 mg) Capsule Oral daily Allergies: No Known Allergies. Review of Systems: Review of Systems is not available for this patient. Vital Signs: Performed on Mar 16, 2021 11:43 Height - 70 in Weight - 130.4 lbs (HIGH) BSA - 1.74 sq.m BMI - 18.71 Temperature - 97.2 F (LOW) Pulse - 70 /min Respiration - 18 /min BP - 183/84 mm(hg) (HIGH) O2 Sat - 99 % Pain - 0 Performance Status: 0 - Fully active, able to carry on all predisease activities without restrictions. (ECOG) Physical Examination: ENMT - No mouth sores, no thrush, no jaundice no cervical lymphadenopathy, Respiratory - Poor air entry, mild wheezing on the right side, Cardiovascular - Regular rate and rhythm of heart, Abdomen - Soft, bowel sounds present, Extremities - No visible edema. Lab/Imaging: Most recent lab results are not available for this patient. Impression: History of stage Ib poorly differentiated squamous cell carcinoma status post left pneumonectomy on June 01, 2028, at that time no adjuvant chemotherapy was offered further observation, CTA chest with pulmonary protocol was done on January 30, 2021 showed new right lower lobe infiltrates and right hilar lymphadenopathy inflammatory/pneumonia/reactive, stable left adrenal adenoma. Chronic smoking, still active History of ulcerative colitis History of off-and-on nosebleed/hemoptysis Plan: Discussed with patient regarding his CT report from January 30, [address] scan of the chest from September 2020,, there is a concern but right lower lobe infiltrates and right hilar lymphadenopathy which could be reactive due to chronic bronchitis or maybe walking pneumonia, but patient and his appears anxious, as they were told that it could be due to cancer., Moreover patient is having off and on hemoptysis, which could be due to recurrent nosebleed or chronic bronchitis as patient still smoking actively but again with new changes seen on CTA chest done recently in January 2021 which again could be due to reactive but, at this point, we will consider CT PET scan, if it shows any uptake in right lung or mediastinal, will consider further evaluation with possible bronchoscopy. Patient return to clinic after CT PET scan done with CBC CMP. Patient was advised to quit smoking, was offered any assistance he may need. Signed By: Leonard Jose M.D. <<Signature on File>>
== END 2021-03-16 10:10 | disposition home or self-care (01) ==
PROVIDERS: PCP Family Medicine; Visit Provider Internal Medicine Hematology & Oncology
DX: Z08 Encounter for follow-up examination after completed treatment for malignant neoplasm (principal); Z85.118 Personal history of other malignant neoplasm of bronchus and lung; F17.210 Nicotine dependence, cigarettes, uncomplicated; Z87.19 Personal history of other diseases of the digestive system
CPT/HCPCS: 99204

== ENCOUNTER 2021-03-26 08:11 | Outpatient (CLI) | payer OTHER, MEDICARE, SELFPAY ==
--- NOTE | 2021-03-26 08:28 | ECG_ITS ---
[facility] Test Date: 2021-03-26 Pat Name: Jose Armando Estrada Department: Room: Gender: Male [employer]: Batsheva John : 1960 Requested By: Rosaura Lacy Order Number: [id number] Berna MD: Rosaura Lacy M.D. Interpretive Statements NAME OF STUDY: LEXISCAN SESTAMIBI STRESS TEST INDICATION: Chest Pain, PROCEDURE: At the baseline, the EKG revealed normal sinus rhythm with diffuse nonspecific ST-T changes.. The baseline blood pressure was 157/95 mm Hg with a heart rate of 73 beats/min. Lexiscan was infused over a period of 20 seconds. A total of 0.4 milligrams of Lexiscan was infused. The stress phase was continued for a total of 5 minutes. Heart rate at the end of the stress phase was 86 with a blood pressure 176/116. The EKG at the peak infusion revealed no significant changes. Sestamibi was injected 20 seconds after the Lexiscan infusion. Blood pressure at the end of the recovery phase was 172/123 with a heart rate of 79 per minute. CONCLUSION: 1. No significant EKG changes with the LexiScan infusion 2. No LexiScan induced chest pain or cardiac arrhythmia 3. Hypertensive response to Lexiscan infusion 4. Sestamibi/sestamibi perfusion scan pending; see separate report. Electronically Signed On 03-27-2021 16:09:11 CDT by Rosaura Lacy M.D. [id number]
--- NOTE | 2021-03-26 08:28 | NMCV_ITS ---
NM enoc perf SPECT r/s* [id number] Jose Armando Estrada Age: 61 Gender: M : 1960 Exam Date: 03/26/2021 09:08 Ordering Phys: Rosaura Lacy MD ([email or web address]) Technologist: OFELIA Cano Exam Location: [facility] Indications: CHEST PAIN STRESS TEST [facility] IMAGE PROTOCOL Rest/Stress 1 Lexiscan Day Radiopharmaceutical Dose (mCi) Administration Site Administered by Rest: Tc-99m 10.8 IV OFELIA Howell Sestamibi Stress:Tc-99m 32.4 IV OFELIA Howell Sestamibi Rest: 26-Mar-2021 60 Discovery 630 Stress: 26-Mar-2021 30 Discovery 630 0.4mg Lexiscan. Images obtained in supine and prone position. SPECT RESULTS Technical Quality: Excellent Raw Data Analysis: Normal Image Corrections: No attenuation or motion correction applied Summed Stress Score: 10 Summed Rest Score: 0 Summed Difference Score: 10 PERFUSION FINDINGS Small to moderate area of moderately decreased tracer uptake was noted in the mid anterolateral, mid inferolateral, apical lateral, apical anterior and LV apex. Significant reversibility was noted in all the segments. FUNCTIONAL RESULTS (calculated via Gated SPECT) Stress Image LV EF (%): 57 Stress EDV (mL):100 TID: 1.04 Stress ESV (mL):43 FUNCTIONAL FINDINGS: Segmental wall motion analysis revealed mild hypokinesia of the LV apex IMPRESSIONS 1. Myocardial perfusion imaging revealing small to moderate area of reversible defect, suggesting ischemia in the distribution of the circumflex artery predominantly with some involvement of the left anterior descending artery territory. 2. Normal clinical ejection fraction of 57%.(Total ischemic burden was 20% with 1% fixed defect) 3. Segmental wall motion analysis revealing no gross wall motion normalities. 4. Near normal LV volume. Compared to the study from 09/14/2018, there is some worsening of the extent of ischemia. Left ventricular ejection fraction appears to have improved. Dr Rosaura Lacy MD [facility] (Electronically Signed) Final Date: 27 March 2021 09:20 S
[2021-03-26 08:40] VITALS: BMI 18.6
[2021-03-26 10:15] VITALS: BP 193/117; PULSE 100
[2021-03-26] MEDS: regadenoson 0.4 Mg/5 ml Syringe IVP (10:22)
--- NOTE | 2021-03-26 10:25 | PC.NURSE ---
Hypertension Dr Lacy notified of pt BP of 199/137. Pt states he usually takes Clonidine at home PRN for hypertension but does not have medication with him today. Dr Lacy ordered 0.1mg PO CLonidine and given in CDL.
[2021-03-26] MEDS: cloNIDine 0.1 mg Tablet PO (10:29)
== END 2021-03-26 08:12 | disposition home or self-care (01) ==
LOC: CDL 08:13
PROVIDERS: PCP Family Medicine; Visit Provider Internal Medicine Cardiovascular Disease
DX: R07.9 Chest pain, unspecified (principal); I10 Essential (primary) hypertension
CPT/HCPCS: 78452; 93017; A9500; J2785

== ENCOUNTER → 2021-04-02 11:13 | Outpatient (BNVA) | payer OTHER, MEDICARE, SELFPAY | PROVIDERS: PCP Family Medicine; Visit Provider Internal Medicine Cardiovascular Disease | DX: R07.89 Other chest pain (principal); R06.02 Shortness of breath; I25.118 Atherosclerotic heart disease of native coronary artery with other forms of angina pectoris; R94.39 Abnormal result of other cardiovascular function study; R05 Cough; Z79.01 Long term (current) use of anticoagulants | CPT/HCPCS: 80048 ==

== ENCOUNTER 2021-04-07 07:58 | Outpatient (CLI) | payer OTHER, MEDICARE, SELFPAY ==
[2021-04-07 08:31] LABS: Basophils # 0.1 10^3/uL (0.0-0.1); Basophils % 1.2 %; Eosinophils # 0.4 10^3/uL (0.0-0.8); Eosinophils % 3.7 %; Hematocrit 44.5 % (42.0-52.0); Hemoglobin 14.8 g/dL (11.7-16.6); Lymphocytes # 2.2 10^3/uL (0.8-4.8); Lymphocytes % 22.9 %; Mean Corpuscular HGB Conc 33.3 g/dL (30.0-36.0); Mean Corpuscular Hemoglobin 31.2 pg (28.0-34.0); Mean Corpuscular Volume 93.9 fL (80-94); Mean Platelet Volume 10.1 fL (7.4-10.4); Monocytes # 0.6 10^3/uL (0.2-0.9); Monocytes % 6.8 %; Neutrophils # 6.13 10^3/uL (1.8-7.7); Neutrophils % 65.1 %; Nucleated Red Blood Cells % 0 %; Platelet Count 269 10^3/cmm (130-400); Red Blood Count 4.74 10^6/uL (4.1-5.3); Red Cell Distribution Width 13.7 % (12.1-15.1); White Blood Count 9.4 10^3/uL (4.0-10.0)
[2021-04-07 08:40] LABS: Alanine Aminotransferase 6 U/L (0-41); Albumin Level 4.2 g/dL (3.5-5.2); Alkaline Phosphatase 74 IU/L (40-130); Aspartate Amino Transferase 12 U/L (0-40); Blood Urea Nitrogen 10 mg/dL (8-23); Calcium 9.2 mg/dL (8.5-10.5); Carbon Dioxide 25 mmol/L (22-29); Chloride 105 mmol/L (98-107); Globulin 2.5 g/dL (1.3-4.6); Glomerular Filtration Rate 97.6 mL/min (90-130); Glucose 125 mg/dL (65-115); Osmolality Calculated 291 mOsm/kg (285-295); Sodium 140 mmol/L (136-145); Total Bilirubin 0.2 mg/dL (0.15-1.2); Total Protein 6.7 g/dL (6.6-8.7)
--- NOTE | 2021-04-07 10:45 | ONC FU_ITS ---
Dr. Jose follow up note Patient: Jose Armando Estrada Unit #: [id number]: 1960 Dicatated By: Leonard Jose M.D.Date of Visit:Apr 07, 2021 Onc Med Follow-up/Prog Note History of Present Illness: Mr. Jose Armando Estrada, 61-year-old gentleman with a history of poorly differentiated squamous cell carcinoma status post left pneumonectomy done on June 07, 2008, pathology report confirmed poorly differentiated squamous cell carcinoma with tumor diameter of 8.5 cm. Involving upper and lower lobes. 17 parabronchial lymph nodes were negative. Pleura was free of tumor, margin clear, total 24 lymph nodes were examined were negative,, T2 N0 M0 stage Ib and at that time as per medical oncology note patient does not need chemotherapy rather follow-up every 3 to 4 months with lab work of physical exam and chest x-ray. As per patient, he went to [facility] for follow-up where he underwent follow-up chest x-rays, CT scan and PET scan which was done on April 16, 2015 which confirmed status post left pneumonectomy. Previously seen subcentimeter pulmonary nodules are unchanged in size showing no significant FDG activity, likely benign in nature., Mildly hypermetabolic mediastinal lymph nodes, likely benign in nature, mildly diffuse FDG activity seen in descending colon and proximal sigmoid colon with bowel wall thickening likely inflammatory in nature, patient has history of ulcerative colitis, intense FDG activity seen at osteolytic lesion at the right anterior lateral aspect of C2 vertebra with SUV of 6.3, lesion appears unchanged in size compared to CT scan of neck done on February 10, 2012, given the long-term stability, this likely represent benign degenerative cystic changes, less likely metastatic disease. Patient underwent follow-up CT chest in March 2019 which confirmed again left pneumonectomy with shift mediastinum, advanced COPD with hyperexpanded right lung. Scarring right lung similar previous CT scan seen in July 2018. Small nodular densities seen again similar to previous CT scan with the exception of small nodular density in the right apex but similar to ones seen in November 2018 exact etiology unclear., Left adrenal mass which was similar seen on previous CT scans were suspicious adenoma. Patient had a follow-up CT scan of the chest done on September 24, 2020 which shows changes of left pneumonectomy are stable. No evidence of tumor recurrence or metastatic disease. Negative for acute cardiopulmonary disease. Patient recently underwent CTA of the chest with pulmonary embolism protocol for chest pain and elevated D-dimer on January 30, 2021 showed postoperative changes left pneumonectomy with cardiac and mediastinal shift. Unchanged. No evidence of pulmonary embolism. Patchy infiltrate in the right lower lobe are new from September 2020 consistent with pneumonia., Unchanged left adrenal adenoma measuring 2.1 cm. Enlarged right hilar lymph node nonspecific but may be reactive., As per patient he was told, his disease may be relapsing and he is concerned and wants to verify whether he has recurrence of disease or not, complaining of hemoptysis off and on, last time was about a month ago but also complaining of nosebleed, and still smoke about a pack a day Denies any headaches, denies any blurred vision double vision denies any new bony pains but chronic muscle skeletal discomfort, denies any weight loss. Denies any fever chills Follow-up CT PET scan done on March 21, 2021 showed patient is status post left pneumonectomy, right middle lobe infiltrate is FDG negative. There is no findings suggestive of recurrence of malignancy Came for follow-up, denies any specific complaints, no fever chills, no nausea or vomiting, no night sweats, no shortness of breath, no hemoptysis no hematemesis, no new bony pains Medications: amLODIPine Besylate 1 Tablet (of 10 mg) Oral daily, Aspirin 81 1 Tablet (of 81 mg) Tablet, chewable Oral daily, Atorvastatin Calcium 1 Tablet (of 80 mg) Oral daily, Cholecalciferol 1 Capsule (of 125 mcg ) Oral daily, Clopidogrel Bisulfate 1 Tablet (of 75 mg) Oral daily, Creon 1 Capsule (of 06267 Units) Capsule Delayed Release Particles Oral t.i.d. & at bedtime, GNP Mucus Relief 1 Tablet (of 400 mg) Oral PRN, Isosorbide Mononitrate ER 1.5 Tablet (of 60 mg) Tablet SR 24 HR Oral daily, Lisinopril 1 Tablet (of 20 mg) Oral daily, Metoprolol Tartrate 1 Tablet (of 100 mg) Oral b.i.d., Mirtazapine 1 Tablet (of 45 mg) Oral daily, Nitroglycerin 1 Tablet (of 0.4 mg) Tablet, sublingual Sublingual PRN, ProAir HFA 2 Puff(s) (of 108 (90 base) mcg/act) Aerosol, solution Inhalation four times a day, Ranexa 1 Tablet (of 1000 mg) Tablet SR 12 HR Oral b.i.d., Requip 1 Tablet (of 3 mg) Oral daily, Spiriva HandiHaler 1 Capsule (of 18 mcg) Inhalation daily, Tamsulosin HCl 1 Carton (of 0.4 mg) Capsule Oral daily Allergies: No Known Allergies. Review of Systems: Review of Systems is not available for this patient. Vital Signs: Performed on Apr 07, 2021 10:08 Height - 70.00 in Weight - 131.2 lbs (HIGH) BSA - 1.74 sq.m BMI - 18.83 Temperature - 98.0 F (LOW) Pulse - 86 /min Respiration - 18 /min BP - 167/82 mm(hg) (HIGH) O2 Sat - 98 % Pain - 0 Fatigue - 8 Performance Status: 0 - Fully active, able to carry on all predisease activities without restrictions. (ECOG) Physical Examination: ENMT - No mouth sores, no thrush, no jaundice, Respiratory - Poor air entry, mild wheezing otherwise clear, Cardiovascular - Regular rate and rhythm of heart, Abdomen - Soft, bowel sounds present, Extremities - No visible edema. Lab/Imaging: Most recent lab results are not available for this patient. Impression: History of stage Ib poorly differentiated squamous cell carcinoma status post left pneumonectomy on June 01, 2008, at that time no adjuvant chemotherapy was offered further observation, CTA chest with pulmonary protocol was done on January 30, 2021 showed new right lower lobe infiltrates and right hilar lymphadenopathy inflammatory/pneumonia/reactive, stable left adrenal adenoma.CT PET scan was recommended, so Follow-up CT PET scan done on March 21, 2021 showed right middle lobe infiltrate is FDG negative, there are no findings for recurrent malignancy, patient is status post left pneumonectomy Chronic smoking, still active History of ulcerative colitis History of off-and-on nosebleed/hemoptysis Plan: Discussed with patient regarding his labs white blood count 9.4 hemoglobin 14.8 hematocrit 44.5 platelets 269,000 CMP within normal limits except glucose 125 and follow-up CT PET scan done on March 21, 2021 showed no findings suggestive of recurrence of disease, right middle lobe infiltrate is FDG negative, patient status post left pneumonectomy Clinically, patient doing well with no new signs symptoms history of recurrence of disease his lab work-up is within normal range his follow-up CT PET scan shows no signs/findings suggestive of recurrence of disease. Abnormality seen on recent CTA could be reactive or inflammatory but follow-up CT PET scan showed no evidence of recurrence of disease, patient was reassured and he will return to clinic in 6 months with CBC CMP Patient still smoke about pack a day, he was advised to quit smoking and was offered any assistance he may need. Signed By: Leonard Jose M.D. <<Signature on File>>
== END 2021-04-07 07:59 | disposition home or self-care (01) ==
LOC: ONCMED 08:01
PROVIDERS: PCP Family Medicine; Visit Provider Internal Medicine Hematology & Oncology
DX: Z08 Encounter for follow-up examination after completed treatment for malignant neoplasm (principal); Z85.118 Personal history of other malignant neoplasm of bronchus and lung; F17.210 Nicotine dependence, cigarettes, uncomplicated; Z87.19 Personal history of other diseases of the digestive system; Z90.2 Acquired absence of lung [part of]
CPT/HCPCS: 36415; 80053; 85025; 99214

== ENCOUNTER → 2021-04-16 10:50 | Outpatient (BNVA) | payer OTHER, MEDICARE, SELFPAY | PROVIDERS: PCP Family Medicine; Referring Provider Internal Medicine Cardiovascular Disease; Visit Provider Internal Medicine Cardiovascular Disease | DX: R94.39 Abnormal result of other cardiovascular function study (principal); Z01.818 Encounter for other preprocedural examination; Z20.822 Contact with and (suspected) exposure to COVID-19 | CPT/HCPCS: 85025; 85610; 86850; 86900; 87635 ==

== ENCOUNTER 2021-04-22 07:34 | Day surgery (SDC) | payer OTHER, MEDICARE, SELFPAY ==
[2021-04-22] VITALS (116 sets, daily range): BP systolic 81–204; BP diastolic 48–128; PULSE 58–112; RESP 11–38; TEMP 36.3–36.8; O2SAT 78–100; BMI 18.8
--- NOTE | 2021-04-22 | CT_ITS ---
WS: [id number] CT CHEST TECHNIQUE: Noncontrast CT of the chest with coronal and sagittal reformatted images. CLINICAL INFORMATION: COUGH COMPARISON: None. DLP: [id number] scans at [facility] use at least one of these dose optimization techniques: automat ed exposure control; mA and/or kV adjustment per patient size (includes targeted exams where dose is matched to clinical indication); or iterative reconstruction. FINDINGS: Advanced chronic emphysematous changes. Right to left shift of the mediastinum with heart displaced i nto the left hemithorax. Volume loss left lung. No acute pulmonary infiltrates. No focal consolidatio n or pleural fluid. A few calcified granulomas. Calcified hilar nodes. Coronary calcification. No sig nificant pericardial effusion. CT/CT chest wo con [id number] IMPRESSION: 1. Advanced chronic emphysematous changes. No acute pulmonary infiltrates. 2. Right to left mediastinal shift due to chronic emphysema and volume loss le ft lung. Heart is displaced into the left hemithorax. 3. Vascular calcification including coronary calcification. 4. No other significant findings.
--- NOTE | 2021-04-22 07:30 | XACV_ITS ---
Ht: 180 cm Wt: 59 kg BSA: 1.71 m2 Gender: Male : 1960 Any Known Allergies: No known allergies Exam Priority: Routine Procedure(s): Procedure Description: Diagnostic procedure Diagnostic Cath Status: Elective Diagnostic Findings * The left main is a medium caliber vessel around 20 to 30% eccentric narrowing distally. * The left anterior descending artery is a medium caliber vessel which appears to wrap around the LV apex. The long stented segment extending from the proximal to the mid LAD was found to be patent with minimal in-stent narrowing. The first septal slot router, was found to have a high-grade ostial stenosis, appears to be a jailed lesion. * The circumflex artery appears to be a medium to large caliber codominant vessel. The proximal segment of the vessel involving the ostium was found to have an eccentric around 70 to 80% stenosis. Moderate to heavy calcification was noted in the proximal segment of the artery. Distal to this lesion, the artery appears to have diffused 40 to 50% lesion. The obtuse marginal branches were found to have mild diffuse intimal irregularities with no significant stenotic lesions. * The intermedius artery is a small to medium caliber vessel with no significant stenotic lesions. * The right coronary artery is a medium caliber codominant vessel which was found to be chronically occluded after the AV dejan branch in the proximal segment. PCI Status: Urgent PCI Indication: New Onset Angina <= 2 months Interventional Findings * Procedure detail: XB 3.5 guide catheter was used to engage the left main artery. After zeroing and equalizing, we advanced FFR wire into distal left circumflex artery. IV heparin was used to maintain an ACT above 250 seconds. FFR was significantly ischemic with a value of 0.76. At this time we decided to perform PCI of ostial to proximal left circumflex artery. We predilated the stenosis with a 2.5 x 12 mm semicompliant balloon. This was followed by placement of 3.0 x 15 mm resolute [place] drug-eluting stent. We postdilated this with a 3.25 x 6 mm NC balloon. At this time final angiogram was performed that showed excellent stent expansion, no residual stenosis and SARAH-3 flow. Guidewire and guide catheter were removed. Sheath was sutured in place for removal later. * Proximal Circumflex: 100% stenosis treated with a AB TREK 2.50X12 RX BALLOON, ALEX[place]RIA Castaneda ADRIENNE 3.0X15 TAWNY, and [place] CORONA EUPHORA RX 3.84M87ZE BALLOON. 0% residual stenosis, SARAH: 3 flow. Conclusions 1. This is a 61-year-old white male with a history of coronary disease, status post multiple PCI, presented with chest pain. He had an abnormal myocardial perfusion imaging revealing ischemia, mostly in the distribution of the left circumflex artery. For further evaluation of his ongoing worsening of the symptoms, a cardiac catheterization was recommended. Patient underwent left heart catheterization with left and right coronary angiogram today. The findings are as follows.. 2. 20% distal left main disease. 70 to 80% eccentric proximal circumflex artery stenosis with heavy calcification. Patent stented segment of the proximal to mid LAD. High-grade jailed lesion of the ostium of the first septal slot router. Chronic total occlusion of the proximal RCA with grade 2 [id number] collaterals. LVEDP of 7 mm Hg. 3. I reviewed and discussed the cardiac catheterization data with the Dr. Elliott. It was thought to be appropriate to consider an FFR and possible PCI of the circumflex artery lesion. Dr. Elliott took over further management of this patient at this point. 4. Severe ostial to proximal Left circumflex artery stenosis based on ischemic FFR values s/p successful revascularization with TAWNY x 1. 5. Proximal Circumflex was treated with a Balloon, Drug Eluting Stent, and Balloon. Recommendations * Transfer to [facility]. * Aspirin and Plavix for at least 1 year. * High intensity statin therapy. * Outpatient cardiology follow-up in 4 weeks. Interventional RX Recommendation: PCI w/o planned CABG Diagnostic RX Recommendation: PCI w/o planned CABG Anticoagulation: Heparin LV EDP: 7 mmHg Left Ventriculography Findings: * The LV gram was not performed. The LVEDP was 7 mmHg. Pressures Phase:Rest AO : 148 / 70 ( 104 ) @ 8:16:00 AM 7 / -16 ( -8 ) @ 8:22:00 AM 166 / 47 ( 101 ) @ 8:26:00 AM 146 / 80 ( 110 ) @ 9:52:00 AM 147 / 77 ( 107 ) @ 10:03:00 AM LV : 164 / -9 / 6 @ 8:25:00 AM Clinical Evaluation EBL: 5mL-10mL Procedural Details Procedure Consent Obtained. Pre-Procedure Time Out. Identified patient by full name and date of as verbalized by the patient/guarantor. Does the consent match the physician's order: Yes. Accurate & Complete Informed Consent: Yes. Inpatient/Outpatient History & Physical on Chart: Yes. If H&P is completed, is and addenduem needed: N/A; If yes, is the addendum complete: N/A. Visualize and Verify Site with Patient/Guarantor: N/A. Relevant Radiology Images available: Yes. Pre-op teaching completed and patient verbalized understanding. The risks, benefits, and alternatives of sedation and/or procedure were discussed by physician. The patient agrees to continue. Procedure started. Correct patient, site and procedure confirmed by cath team. PERRLA. Strong, equal hand wool hanker bilaterally. Lungs clear x 5 lobes. IV Site on Arrival: 20 gauge in the right forearm. IV Fluids: 0.9% NaCl at KVO. 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 Pre Procedural Pulses: bilateral dorsalis pedis was 3+. Pre Procedural Pulses: bilateral posterior tibial was 3+. Pre Procedural Pulses: bilateral radial was 3+. Oxygen started at 2liters/min via nasal canula. right groin was prepped with chloroprep then draped in the usual sterile fashion. right radial was prepped with chloroprep then draped in the usual sterile fashion. Physician notified. Baseline sample Acquired. HR: 83 BPM. Equipment: 6F - Radial. Cardiac Cath Pack. ACIST Manifold Kit Model BT 2000. Heparinized Saline (2 units/mL), 1000 mL bag. Physician arrived. Physician scrubbed in. Immediate Pre-Procedure Time Out. Correct Patient: Yes; Correct Procedure: Yes; Correct Site: Yes; Correct Patient Position: Yes; Correct Supplies: Yes; Dried Flammable Prep: Yes; Blood Products Available: No;. Lidocaine 1% infiltrated to the right groin. Arterial access obtained with micropuncture set. Equipment: 5F - Femoral. Kit, Micropuncture. A 5 citizen [place] JL4 catheter in over wire. Multiple views taken of left coronary artery. Dr. Elliott called. Catheter out. A 5 [place] JR4 catheter in over wire. Dr. Elliott arrived. Multiple views taken of right coronary artery. EDP Sample taken: LV 164/-10,6; HR: 81 BPM; SpO2: 100%. Pullback taken: LV Off; AO Off; Mean: , Peak to Peak: , SEP: ; HR: 70 BPM; SpO2: 100%. Catheter out. A Suture was successful obtaining hemostatsis at the Right Femoral artery insertion site. Sheath(s) sutured into position with 2-0 silk and sterile 4x4's and Op-site applied over the site. No oozing or signs and symptoms of hematoma noted. Arterial sheath flushed and connected to tranducer and pressure bag with heparinized saline. Post Procedure: Pulses reassessed and unchanged. PERRLA. Strong, equal hand wool hanker bilaterally. Contrast type used: Omnipaque 300 mgI/mL, 500 mL bottle. [id number]. Complications: none. Estimated blood loss: 5mL-10mL. No VTE prophylaxis required. Medication's Wasted: Heparin = 4500 units. Medication's Wasted: Lidocaine 1% = 10 mL. Medication's Wasted: Verapamil = 5 mg. Total IV fluids: 50 mL. Vital chart was stopped. Pt taken off table due to unstable ed patient. The risks, benefits, and alternatives of sedation and/or procedure were discussed by physician. The patient agrees to continue. Correct Patient: Yes; Correct Procedure: Yes; Correct Site: Yes; Correct Patient Position: Yes; Correct Supplies: Yes; Dried Flammable Prep: Yes; Blood Products Available: No;. Immediate pre- procedure time -out. Lidocaine 1% infiltrated to the right groin. 5 fr sheath exchanged for a 6fr sheath. 6 citizen [place] XB 3.5 guide catheter was inserted over the wire. Multiple views taken of left coronary artery. FFR guidewire was advanced through the guide catheter to lesion in the prox Circ. An FFR value of 0.76 was obtained for a lesion located at Prox CX. Multiple views taken of left coronary artery. Inflation number : 1 A AB TREK 2.50X12 RX BALLOON was prepped and advanced across the Prox CX , then inflated to 10 THOMAS for 0:24 seconds. Balloon out. Runthrough guidewire was advanced through the guide catheter to lesion in the prox Circ. Inflation Number : 2 A ALEXANDRIA Castaneda ADRIENNE 3.0X15 TAWNY -Lot Number# [id number] exp 02-02-2024_ was prepped and advanced across the Prox CX. The stent was deployed at 12 THOMAS for 0:21 seconds. Stent balloon out over wire. Results checked. Inflation number : 3 A [place] CORONA EUPHORA RX 3.48E72HY BALLOON was prepped and advanced across the Prox CX , then inflated to 14 THOMAS for 0:21 seconds. Balloon out. Wire out. Results checked. Guide catheter out. Groin shot. Patient's family updated. Sheath(s) sutured into position with 2-0 silk and sterile 4x4's and Op-site applied over the site. No oozing or signs and symptoms of hematoma noted. Arterial sheath flushed and connected to tranducer and pressure bag with heparinized saline. ACT drawn. Results 177 seconds. Therapeutic limits - pre-heparin administration 90-150 seconds and monitoring heparin during a vascular procedure >250 seconds. Post Procedure: Pulses reassessed and unchanged. PERRLA. Strong, equal hand wool hanker bilaterally. No VTE prophylaxis required. Fluoro: 7:00. Contrast type used: Visipaque 320 mgI/mL, 500 mL bottle. [id number]. Medication's Wasted: Heparin = 2000 units. Medication's Wasted: Lidocaine 1% = 14 mL. Medication's Wasted: Other = adenosine 50 mg. Medication's Wasted: Other = fentanyl 50 mcg. Total IV fluids: 300 mL. PCI Indication: New Onset Angina- severe ostial stenosis. Post-op diagnosis: severe ostial stenosis. [facility] Clinical Fraility Score: 4: Vulnerable. 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 Chest Pain Symptom Assessment: Typical Angina Symptoms. Cardiovascular Instability: No. Vital chart was stopped. Procedure completed. Patient transferred by bed to 1st floor. Access Site Site: Right Femoral artery Sheath Size: 5 Fr Hemostasis Method: Suture Hemostasis Success: Successful Procedure Medications Start: 8:59 AM Stop: 8:59 AM Medication: Versed Amount: 1 mg Route: I.V. Start: 9:00 AM Stop: 9:00 AM Medication: Fentanyl Amount: 50 mcg Route: I.V. Start: 9:07 AM Stop: 9:07 AM Medication: Versed Amount: 1 mg Route: I.V. Start: 9:12 AM Stop: 9:12 AM Medication: Heparin Amount: 1500 units Route: I.V. Start: 10:38 AM Stop: 10:38 AM Medication: Heparin Amount: 6000 units Route: I.V. Start: 11:00 AM Stop: 11:00 AM Medication: 0.9% Saline Amount: 250 ml Route: I.V. bolus Start: 11:12 AM Stop: 11:12 AM Medication: Heparin Amount: 3000 units Route: I.V. Start: 11:12 AM Stop: 11:12 AM Medication: Plavix Amount: 300 mg Route: P.O. I, the attending physician, have reviewed and verified all procedure medications. Yes, all medications given per verbal order History/Risk Factors Hypertension: Yes Dyslipidemia: Yes Tobacco Use: Current/Recent(w/in 1 year) Report Signatures Interventional Workflow Finalized by Raffi Elliott MD on 05/05/2021 01:28 PM Diagnostic Workflow Finalized by Dr Rosaura Lacy MD [facility] on 04/23/2021 08:45 AM
[2021-04-22] MEDS: diphenhydrAMINE 50 mg Capsule PO (08:01)
--- NOTE | 2021-04-22 08:50 | W.PM.OPSUD ---
Surgery/Procedure H&P Update DATE OF PROCEDURE: April 22, 2021 DATE H&P PERFORMED: 04/02/20 H&P UPDATE INFORMATION: I have reviewed H&P completed within last 30 days, I have examined patient prior to procedure and No changes to prior documentation PREOP DIAGNOSIS: ASHD PRIMARY INDICATION FOR PROCEDURE: Worsening chest pain, history of CAD and PCI PLANNED PROCEDURE: Operation Date: 04/22/21 08:30 Proposed Procedures p left Cardiac Catheterization 09256 r94.39(Left) - Rosaura Lacy MD PATIENT REASSESSED PRIOR TO SEDATION, WITH NO CHANGE NOTED: Yes PHYSICAL EXAM: alert, oriented x 3, clear to auscultation bilaterally (Scattered coarse crackles bilaterally; no evidence of consolidation) and regular rate & rhythm AIRWAY EVAL/ANESTHESIA PLAN: normal airway, see other exam findings, ASA IV, Monitored Anesthesia, Local Anesthesia, Risks, benefits & alternatives of sedation and/or procedure discussed and Patient agrees to continue as planned
--- NOTE | 2021-04-22 09:44 | SUR.PHASEI ---
HOLDING/DELAY Procedure temporarily placed on hold and patient brought to CPRU 3 d/t emergent case from ER. Condition stable. 5 fr sheath to right groin via transduced via pressure bag. No hematoma noted. Verbal post cath instructions given. Verbalized understanding. Call light given. Informed to call for needs.
[2021-04-22] MEDS: hyDRALAzine 20 mg/mL INJ 1 mL IVP (12:04)
[2021-04-22] MEDS: HYDROcodone-acetaminophen 7.5-325 mg Tablet 1 TAB PO (12:23)
--- NOTE | 2021-04-22 13:24 | CT_ITS ---
WS: [id number] CT ABDOMEN PELVIS TECHNIQUE: Contrast-enhanced CT of the abdomen and pelvis with coronal and sagittal reformatted image s. CLINICAL INFORMATION: rule out retroperitoneal bleed COMPARISON: None. DLP: 853.[address] scans at [facility] use at least one of these dose optimization techniques: automat ed exposure control; mA and/or kV adjustment per patient size (includes targeted exams where dose is matched to clinical indication); or iterative reconstruction. FINDINGS:Normal caliber abdominal aorta. Moderate aortic calcification. No evidence of retroperitonea l hematoma.No free fluid in the pelvis. Gaseous distention of the rectum. No evidence of small or lar ge bowel obstruction Diffuse fatty infiltration of the liver. Normal portal vein and splenic vein. Vicarious excretion of contrast into the gallbladder. Splenic granulomas. Mild diffuse gastric wall thickening with mucosal enhancement can be seen with gastritis. Mild wall thickening and enhancement involving the proximal d uodenum can be seen with duodenitis. Bilateral adrenal adenomas are unchanged. Visualized pancreas is normal. Normal bilateral renal parenchymal enhancement. No hydronephrosis in either kidney. Bilatera l ureteral excretion is visualized. Vicarious excretion of contrast into the gallbladder. . Heart is displaced into the left lower hemithorax presumably due to chronic emphysematous changes wit h bulla formation. Volume loss left lung. Disc space narrowing worse at L4-L5 and L5-S1. Mild disc bulging L3-L4 L4-L5. Slight anterolisthesis L4 on L5. Endplate degenerative changes L4-5. CT/CT abdomen pelvis w con* [id number] IMPRESSION: 1. No evidence of retroperitoneal hematoma. 2. Normal caliber abdominal aorta. No aneurysm. 3. Urine distended bladder with contrast. 4. Mild gastric wall thickening with mucosal enhancement extending into the du odenum can be seen with gastritis and duodenitis. This is similar in appearance to 2016. 5. Bilateral adrenal adenomas are unchanged.
--- NOTE | 2021-04-22 13:33 | ECG_ITS ---
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 Measurements Intervals [place] Rate: 92 P: 89 [place]: 150 QRS: 112 QRSD: 81 T: 17 QT: 331 QTc: 411 Interpretive Statements SINUS RHYTHM RIGHT VENTRICULAR HYPERTROPHY [SOME/ALL OF: PROMINENT R IN V1, LATE TRANSITION, RAD, GRACIA, SSS] ST DEVIATION AND MODERATE T-WAVE ABNORMALITY, CONSIDER ANTEROLATERAL ISCHEMIA [-0.1+ mV T WAVE IN V3-V6] Compared to ECG 01/29/2021 14:55:39 T-wave abnormality now present Possible ischemia now present Myocardial infarct finding no longer present Electronically Signed On 04-22-2021 21:56:44 CDT by Diana Ruiz M.D. [id number]
[2021-04-22] MEDS: fentaNYL 50 mcg/mL INJ 2mL 25 MCG IVP ×2 (13:41→19:13)
[2021-04-22 14:22] LABS: Partial Thromboplastin Time 224.2 SECONDS (23.9-36.7)
[2021-04-22] MEDS: iohexol 300 mg/mL 100 mL Btl IV (14:42)
[2021-04-22] MEDS: hyDRALAzine 50 mg Tablet 100 MG PO ×2 (15:45→22:21)
[2021-04-22 15:56] LABS: Partial Thromboplastin Time 63.4 SECONDS (23.9-36.7)
--- NOTE | 2021-04-22 17:59 | PC.NURSE ---
Sheath pulled from right groin at 1711 and pressure was held for 20 minutes. No hematoma, excesses bleeding or swelling noted. Drsg was placed. Drsg dry and intact. Pulses in foot palpable, capillary refill less than three seconds. Pt had no c/o pain or discomfort at the present time. No needs voiced. Call light in reach. Will continue to monitor.
[2021-04-22] MEDS: ranolazine (12HR) 500 mg Tablet 1000 MG PO (18:48)
[2021-04-22] MEDS: nicotine 21 mg Patch 1 PATCH TRANSDERMA (19:14)
[2021-04-22] MEDS: ondansetron 2 mg/ML SDV 2 mL 4 MG IVP (20:25)
--- NOTE | 2021-04-22 20:37 | PC.NURSE ---
Pain Pt complains of pain to right leg. Rates 8/10 on pain scale. Pt denies wanting additional pain medication. Right groin dressing observed. Site asymptomatic. scant amount of new drainage noted to dressing and circled. No hematoma formation. Right leg has strong palpable pedal pulses. Pt wanting to sit straight up at this time. education provided on laying flat for 6 hrs. Nurse offered to give night time medications early due to restless legs. Complains of nausea without emesis. 4mg Zofran given IVP at this time.
--- NOTE | 2021-04-22 22:18 | PC.RESP ---
med ack. by nurse resp. not notified, med missed
[2021-04-22] MEDS: tamsulosin 0.4 mg Capsule PO (22:19)
[2021-04-22] MEDS: lisinopril 20 mg Tablet PO (22:19)
[2021-04-22] MEDS: atorvastatin 40 mg Tablet 80 MG PO (22:20)
[2021-04-22] MEDS: metoprolol tartrate 50 mg Tablet 100 MG PO (22:20)
[2021-04-22] MEDS: isosorbide mononitrate ER 60 mg Tablet 90 MG PO (22:20)
[2021-04-22] MEDS: clopidogrel 75 mg Tablet PO (22:21)
[2021-04-22] MEDS: montelukast sodium 10 mg Tablet PO (22:21)
[2021-04-22] MEDS: mirtazapine 30 mg Tablet 45 MG PO (22:21)
[2021-04-22] MEDS: cholecalciferol (vitamin D3) 1,000 unit Tablet 2000 UNIT PO (22:21)
[2021-04-22] MEDS: amlodipine 10 mg Tablet PO (22:21)
[2021-04-22] MEDS: aspirin 81 mg EC Tablet PO (22:21)
[2021-04-22] MEDS: ropinirole 1 mg Tablet 3 MG PO (22:23)
[2021-04-23] VITALS (35 sets, daily range): BP systolic 68–114; BP diastolic 30–65; PULSE 56–90; RESP 9–33; TEMP 36.6–36.8; O2SAT 92–98
[2021-04-23] MEDS: sodium chloride 0.9% 1,000 ML 500 ML IV (00:44)
--- NOTE | 2021-04-23 00:45 | PC.NURSE ---
Hypotension Dr. Lacy notified of hypotension after administration of PM blood pressure medications. BP currently 77/37 HR 90. Pt asymptomatic. Denies pain. Right groin asymptomatic. Telephone orders received to administer 250ml saline bolus and start NS at 75ml/hr. Will continue to monitor.
--- NOTE | 2021-04-23 01:44 | PC.NURSE ---
Hypotension BP 65/37, Manual BP 68/40. HR 75. Pt sleeping, arouses and appropriate with verbal stimulation. Skin warm and dry. Asymptomatic. Previous bolus completed. NS running at 75ml/hr. Dr. Elliott notified via phone and reported previous intervention with bolus and initiation of maintenance fluids and current BP. No new orders at this time. Will continue to monitor.
--- NOTE | 2021-04-23 04:18 | PC.NURSE ---
Physician Notified Dr. Elliott notified at this time for continued hypotension. Current BP 79/44 , MAP 55. HR 62. Pt remains asymptomatic. No new orders received at this time. Will continue to monitor.
[2021-04-23 07:48] LABS: Basophils # 0.1 10^3/uL (0.0-0.1); Basophils % 0.9 %; Eosinophils # 0.1 10^3/uL (0.0-0.8); Eosinophils % 0.8 %; Hematocrit 37.5 % (42.0-52.0); Hemoglobin 12.4 g/dL (11.7-16.6); Lymphocytes # 1.5 10^3/uL (0.8-4.8); Lymphocytes % 15.5 %; Mean Corpuscular HGB Conc 33.1 g/dL (30.0-36.0); Mean Corpuscular Volume 93.8 fL (80-94); Mean Platelet Volume 10.4 fL (7.4-10.4); Monocytes # 0.8 10^3/uL (0.2-0.9); Monocytes % 8.1 %; Neutrophils # 7.25 10^3/uL (1.8-7.7); Neutrophils % 74.4 %; Nucleated Red Blood Cells % 0 %; Platelet Count 232 10^3/cmm (130-400); Red Cell Distribution Width 14.3 % (12.1-15.1); White Blood Count 9.8 10^3/uL (4.0-10.0)
[2021-04-23 08:06] LABS: Anion Gap 14.1 (5-19); Blood Urea Nitrogen 16 mg/dL (8-23); Calcium 8.8 mg/dL (8.5-10.5); Carbon Dioxide 25 mmol/L (22-29); Chloride 106 mmol/L (98-107); Glomerular Filtration Rate 61.1 mL/min (90-130); Glucose 145 mg/dL (65-115); Osmolality Calculated 296 mOsm/kg (285-295); Potassium 4.1 mmol/L (3.5-5.1); Sodium 141 mmol/L (136-145)
--- NOTE | 2021-04-23 08:06 | PC.NURSE ---
dr argueta called to check on pt at 0715.bp currently 80/50.hr 58 (sr).pt is asymptomatic.he ordered to hold bp meds and to increase ivf's to 100 cc/hr
--- NOTE | 2021-04-23 08:59 | ECG_ITS ---
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 Measurements Intervals [place] Rate: 61 P: 88 [place]: 156 QRS: 106 QRSD: 85 T: 81 QT: 425 QTc: 429 Interpretive Statements SINUS RHYTHM MARKED RIGHT AXIS DEVIATION [QRS AXIS > 100] Compared to ECG 04/22/2021 14:46:23 Right-axis deviation now present Right ventricular hypertrophy no longer present Atrial abnormality no longer present T-wave abnormality no longer present Possible ischemia no longer present Electronically Signed On 04-23-2021 23:49:14 CDT by Raffi Elliott M.D. [id number]
--- NOTE | 2021-04-23 09:10 | USCV_ITS ---
Jose Armando Estrada Age: 61 Gender: M : 1960 Exam Date: 04/23/2021 10:56 Ordering Phys: Rosaura Lacy MD ([email or web address]) Technologist: LIZANDRO Exam Location: [facility] [place] Indication: chest pain BP: 78 / 39 HR: 59 Rhythm: Sinus Technical Quality: Technically difficult study MEASUREMENTS (Male / Female) Normal Values 2D ECHO LV Chamber Size 3.3 cm RV Chamber Size 2.5 cm LVOT Diameter 2.1 cm LV Ejection Fraction MOD 2C 63.6 % LV Ejection Fraction 2C AL 64.8 % LA Diameter 2.1 cm LA Width 3.1 cm LA Height 4.0 cm RA Width 3.2 cm RA Height 3.3 cm Aorta at Sinotubular Diameter 2.7 cm M-MODE Aortic Annulus Diameter 3.9 cm LA Ao Ratio MM 0.7 MV E Point Septal Separation 0.6 cm FINDINGS Left Ventricle Normal left ventricular size and systolic function, EF 63 %. Mild left ventricular hypertrophy. No regional wall motion abnormalities. Right Ventricle Normal right ventricular systolic function. Right Atrium The right atrium is normal in size. Left Atrium The left atrium is normal in size. Mitral Valve Thickened mitral valve. Aortic Valve Thickened aortic valve. Tricuspid Valve Structurally normal tricuspid valve without significant stenosis or regurgitation. Pulmonary artery systolic pressure is normal. Pulmonic Valve Pulmonic valve not well visualized. Pericardium No pericardial or pleural effusion. Aorta Normal aortic annulus size. CONCLUSIONS Normal left ventricular size and systolic function, EF 63 %. Mild left ventricular hypertrophy. No regional wall motion abnormalities. Normal right ventricular size and ejection fraction. Thickened aortic and mitral valves. There is no pericardial effusion. There are no intracardiac masses. Compared to the study from 04/14/2021, no significant change in the 2D findings Dr Rosaura Lacy MD FAC (Electronically Signed) Final Date: 23 April 2021 16:54 S
[2021-04-23] MEDS: nicotine 21 mg Patch 1 PATCH TRANSDERMA (09:37)
[2021-04-23] MEDS: sodium chloride 0.9% 1,000 ML 100 ML IV (09:38)
--- NOTE | 2021-04-23 10:27 | PC.CHAP ---
Pastoral Care Encounter/Spiritual Assessment Type of Contact [] Declined muffle operator visit [] Patient/Family/Request visit [] Outpatient visit [] Follow-up visit [] Physician referral [] Code/Alert [x] Routine visit [] Staff referral [] Actively dying [] Patient sleeping [] Family support [] [] Out of room [] Palliative care [] [x] Receiving care in room [] Pre-surgical visit [] Trauma [] Long length of stay [] ICU visit [] Other: Relational/Emotional Strength [x] Patient feels connected with others/family/visitors/staff [] Distress [] Loneliness/isolation [] Abandonment Spirituality of Patient [x] Person of [place] [] Attends Islam of their [place] [x] Believes in Prayer [] Reads Bible or Moravian materials [] There are Spiritual issues to be addressed Multi Craft Maintenance Technician Interventions [x] Prayer [x] Active listening [x] Non-anxious presence [x] Spiritual/emotional support [] Crisis/trauma care [x] Spiritual counseling [] Bereavement support [] Provided bereavement packet [] Provided Bible/devotional materials [] Provided toy/stuffed animal, coloring book to patient or family member [] Provided Communion [] Anointing/[place] [] Salvation [x] Completed spiritual assessment [] Other: Impact on Illness or Injury [] Angry [] Fearful [x] Anxious [] Often cries [] Exhaustion [x] Unable to work [] Unable to attend orthodox [] Unable to walk/stand [] Unable to read [] Unable to drive [] Unable to eat/drink [] Unable to sleep [] Unable to be with family [] Patient intubated [] Other: Summary Retried had stents proceedure, feels good has a good attituse, going home soon Time spent with patient 10 mins
[2021-04-23] MEDS: sodium chloride 0.9% 250 ML IV (13:30)
--- NOTE | 2021-04-23 14:07 | PC.NURSE ---
bp remains low.pt has been up with assist..amb in room.denies dizziness.dr argueta ordered 250 cc ns bolus and to have pt drink a cup of chicken broth.
--- NOTE | 2021-04-23 16:35 | P.PN_ITS ---
Subjective Subjective: Interval history: He underwent a cardiac organization yesterday and was found to have a high-grade lesion in the proximal segment of the left circumflex artery, involving the ostium. Patient underwent a PCI of this lesion by Dr. Elliott. He has been doing okay postoperatively. However he was found to have a systolic blood pressure in the 70s and 80s through the night. Apparently blood pressure started dropping after the medications. He was given normal saline 250 cc bolus followed by 100 cc/h. He has good urine output. He was not complaining of any abdominal pain or any back pains. No chest pain or shortness of breath. His EKG does not do any new changes. CBC and a BMP in the normal range. Medications: Reviewed: Yes Medication Review Details: Current Medications Hydrocodone Bitart/Acetaminophen (Hydrocodone-Acetaminophen 7.5-325 Mg Tablet) 1 tab PO Q6H PRN PRN Reason: Pain Last Admin: 04/22/21 12:23 Dose: 1 tab Documented by: Albuterol Sulfate (Albuterol 2.5 Mg/0.5 Ml Neb) 2.5 mg INHALATION Q6H PRN PRN Reason: Shortness Of Breath Albuterol Sulfate (Albuterol 8 Gm Mdi) 2 puff INHALATION QID PRN PRN Reason: Shortness Of Breath Albuterol/Ipratropium (Ipratropium-Albuterol 3 Ml Neb) 3 ml INHALATION Q6H PRN PRN Reason: Shortness Of Breath Amlodipine Besylate (Amlodipine 10 Mg Tablet) 10 mg PO DAILY@22 [facility] Last Admin: 04/22/21 22:21 Dose: 10 mg Documented by: Aspirin (Aspirin 81 Mg Ec Tablet) 81 mg PO DAILY@22 [facility] Last Admin: 04/22/21 22:21 Dose: 81 mg Documented by: Atorvastatin Calcium (Atorvastatin 40 Mg Tablet) 80 mg PO DAILY@22 [facility] Last Admin: 04/22/21 22:20 Dose: 80 mg Documented by: Clopidogrel Bisulfate (Clopidogrel 75 Mg Tablet) 75 mg PO DAILY@22 [facility] Last Admin: 04/22/21 22:21 Dose: 75 mg Documented by: Hydralazine HCl (Hydralazine 50 Mg Tablet) 100 mg PO TID [facility] Last Admin: 04/23/21 15:56 Dose: Not Given Documented by: Sodium Chloride (Sodium Chloride 0.9%) 1,000 mls @ 100 mls/hr IV .Q10H [facility] Last Admin: 04/23/21 09:38 Dose: 100 mls/hr Documented by: Isosorbide Mononitrate (Isosorbide Mononitrate Er 60 Mg Tablet) 90 mg PO DAILY@22 [facility] Last Admin: 04/22/21 22:20 Dose: 90 mg Documented by: Lisinopril (Lisinopril 20 Mg Tablet) 20 mg PO DAILY@22 [facility] Last Admin: 04/22/21 22:19 Dose: 20 mg Documented by: Metoprolol Tartrate (Metoprolol Tartrate 50 Mg Tablet) 100 mg PO DAILY@22 [facility] Last Admin: 04/22/21 22:20 Dose: 100 mg Documented by: Mirtazapine (Mirtazapine 30 Mg Tablet) 45 mg PO DAILY@22 [facility] Last Admin: 04/22/21 22:21 Dose: 45 mg Documented by: Montelukast Sodium (Montelukast Sodium 10 Mg Tablet) 10 mg PO DAILY@22 [facility] Last Admin: 04/22/21 22:21 Dose: 10 mg Documented by: Nicotine (Nicotine 21 Mg Patch) 1 patch TRANSDERMA DAILY [facility] Last Admin: 04/23/21 09:37 Dose: 1 patch Documented by: Nitroglycerin (Nitroglycerin 0.4 Mg Sublingual Tablet) 0.4 mg SUBLINGUAL Q5M PRN PRN Reason: Chest Pain Non-Formulary Medication (Guaifenesin) 400 mg PO Q4H PRN PRN Reason: Congestion Non-Formulary Medication (Naproxen Sodium [Aleve]) 440 - 660 mg PO PRN [facility] Non-Formulary Medication (Tiotropium Dardanelle [Spiriva Respimat]) 2 puff INHALATION QAM [facility] Last Admin: 04/23/21 02:52 Dose: Not Given Documented by: Ondansetron HCl (Ondansetron 2 Mg/Ml Sdv 2 Ml) 4 mg IVP Q6H PRN PRN Reason: NAUSEA AND VOMITING Last Admin: 04/22/21 20:25 Dose: 4 mg Documented by: Ranolazine (Ranolazine (12hr) 500 Mg Tablet) 1,000 mg PO BID [facility] Last Admin: 04/23/21 15:56 Dose: Not Given Documented by: Ropinirole HCl (Ropinirole 1 Mg Tablet) 3 mg PO DAILY@22 [facility] Last Admin: 04/22/21 22:23 Dose: 3 mg Documented by: Fluticasone/Salmeterol (Fluticasone-Salmeterol 250-50 Diskus) 1 puff INHALATION BID.RESPIRATORY [facility] Last Admin: 04/23/21 09:20 Dose: 1 puff Documented by: Tamsulosin HCl (Tamsulosin 0.4 Mg Capsule) 0.4 mg PO DAILY@22 [facility] Last Admin: 04/22/21 22:19 Dose: 0.4 mg Documented by: Vitamin D (Cholecalciferol (Vitamin D3) 1,000 Unit Tablet) 2,000 unit PO DAILY@22 [facility] Last Admin: 04/22/21 22:21 Dose: 2,000 unit Documented by: Vitals/I&O/Wt Last Vital Signs Temp 98.2 F 04/23/21 15:39 Pulse 63 04/23/21 15:39 Resp 19 H 04/23/21 15:39 BP 100/62 04/23/21 15:39 Pulse Ox 98 04/23/21 15:39 04/23/21 04/23/21 04/23/21 06:59 14:59 22:59 Intake Total 350 / 350 1480 / 1480 Balance 350 / -1375 1480 / 1480 Weight last 48 hrs Weight 131 lb Physical Exam Narrative: EXAM NARRATIVE: GENERAL: The patient is alert and oriented times three. Not in any acute distress. HEENT: No significant pallor, icterus or lymphadenopathy.Oral cavity: There are no mucous membrane lesions. NECK: Trachea appears to be central. No masses noted. No JVD or thyromegaly appreciated. RESPIRATORY: Breath sounds are heard bilaterally with scattered coarse crackles. Occasional expiratory wheezing BREASTS: Deferred. HEART: The heart sounds are normal. No S3 or S4. Short systolic murmur in the lower sternal border. No diastolic murmurs.. No pericardial rub ABDOMEN: No vessel pulsations or distention. No tenderness. No organomegaly appreciated. Bowel sounds are normally heard. : Deferred. RECTAL: Deferred. LYMPHATIC: No lymphadenopathy noted in the neck or groin. EXTREMITIES: No edema or cyanosis. No clubbing. The right femoral arterial puncture site has no hematoma bleeding. MUSCULOSKELETAL: No acute joint deformities or swelling SKIN: There are no significant rashes or ecchymosis NEUROPSYCHIATRIC: The patient is alert and oriented x3. Appears to be in a good mood. No tremors or rigidity noted. Data : 04/23/21 07:37 04/23/21 07:37 EKG 1: My Interpretation: The EKG done today revealed sinus rhythm with some nonspecific T wave changes. No acute ST-T changes. A&P Assessment and plan (1) Hypotension: The hypertension, most likely is atherogenic. I may give another bolus of 250 cc normal saline. Since the patient is fairly asymptomatic, if the systolic blood pressure stays around 100, he may be discharged home today. No clinical evidence of any pulmonary embolism Status: Acute Qualifiers: Hypotension type: other hypotension type Qualified Code(s): I95.89 - Other hypotension (2) Atherosclerotic heart disease of [place] coronary artery with other forms of angina pectoris: Patient status post PCI of the circumflex ostial lesion. Currently seems to be stable. Continue with current medications. Status: Acute (3) Lung cancer: Patient advised to keep his follow-up appointments with Dr. Ortiz. Status: Acute Qualifiers: Laterality: left Lung location: overlapping sites Qualified Code(s): C34.82 - Malignant neoplasm of overlapping sites of left bronchus and lung (4) Hyperlipemia: Continue on the current management. Follow-up evaluation as scheduled. Status: Acute Qualifiers: Hyperlipidemia type: mixed hyperlipidemia Qualified Code(s): E78.2 - Mixed hyperlipidemia (5) Atypical chest pain: Currently has no recurrence of chest pain. May continue on the current medications. Status: Acute Additional A&P Information I may hold off on his hydralazine, amlodipine and metoprolol today. We will be rechecking his blood pressure tomorrow and based on the results, medications will be adjusted. Patient be seen back in the clinic next week by the nurse practitioner. Advised to contact our office, in the event of a developing unusual chest pain or shortness of breath. Attestations Medical Necessity Statement*: Discharge home today. Coding Level of Care Code Acute Nurse Staff for Ronald Oneal Diagnoses Hypotension I95.89 Hypotension type: other hypotension type Atherosclerotic heart disease of [place] coronary artery with other forms of angina pectoris I25.118 Lung cancer C34.82 Laterality: left Lung location: overlapping sites Hyperlipemia E78.2 Hyperlipidemia type: mixed hyperlipidemia Atypical chest pain R07.89
--- NOTE | 2021-04-23 18:14 | PC.NURSE ---
pt's bp has recovered.discharged with several med changes made regarding bp meds.discharge instructions given and explained.pt and family verb understanding of instructions.discharged at 1810 via w/c to exit.pt's daughter to drive pt home.
== END 2021-04-23 18:00 | disposition home or self-care (01) ==
LOC: CCL 09:36 → CSU 11:38
PROVIDERS: Internal Medicine; PCP Family Medicine; Visit Provider Internal Medicine Cardiovascular Disease
DX: I95.89 Other hypotension (principal); I25.118 Atherosclerotic heart disease of native coronary artery with other forms of angina pectoris; C34.82 Malignant neoplasm of overlapping sites of left bronchus and lung; E78.2 Mixed hyperlipidemia; R07.89 Other chest pain; J44.9 Chronic obstructive pulmonary disease, unspecified; I10 Essential (primary) hypertension
CPT/HCPCS: 36415; 71250; 74177; 80048; 85025; 85347; 85730; 93005; 93308; 93452; 93571; 94640; C1725; C1769; C1874; C1887; C1894; C9600; J0153; J0360; J1644; J2250; J2405; J3010; J3490; J7030; J7050; Q0163; Q9967

== ENCOUNTER → 2021-04-30 14:21 | Outpatient (BNVA) | payer OTHER, SELFPAY | PROVIDERS: PCP Family Medicine; Visit Provider Nurse Practitioner Family | DX: I10 Essential (primary) hypertension (principal); I25.10 Atherosclerotic heart disease of native coronary artery without angina pectoris | CPT/HCPCS: 80048 ==

== ENCOUNTER 2021-05-17 01:02 | Emergency (ER) | payer OTHER, SELFPAY ==
[2021-05-17] VITALS (10 sets, daily range): BP systolic 126–183; BP diastolic 64–138; PULSE 81–106; RESP 18–32; TEMP 36.4; O2SAT 94–97; BMI 18.6
--- NOTE | 2021-05-17 01:05 | XRR_ITS ---
PROCEDURE INFORMATION: Exam: XR Chest Exam date and time: 05/17/2021 1:05 AM Age: 61 years old Clinical indication: Dyspnea; Prior surgery; Surgery date: 6+ months; Surgery type: Stents, lung; Additional info: SOB TECHNIQUE: Imaging protocol: XR of the chest. Views: 1 view. COMPARISON: CT chest con [id number] 04/22/2021 1:53 PM FINDINGS: Lungs: There is severe bilateral emphysema and background of pulmonary fibrosis. Pleural spaces: Unremarkable. No pleural effusion. No pneumothorax. Heart/Mediastinum: The cardiomediastinal silhouette is shifted to the left similar to that seen on the CT examination of the chest dated 04/22/2021. Bones/joints: Unremarkable. XR/XR chest 1V portable [id number] IMPRESSION: 1. Stable shift of the mediastinum to the left. 2. Severe bilateral emphysema and pulmonary fibrosis.
--- NOTE | 2021-05-17 01:05 | ECG_ITS ---
[facility] Test Date: 2021-05-17 Pat Name: Jose Armando Estrada Department: Room: Gender: Male Space Operations: AMPARO : 1960 Requested By: Janae Ruffin Order Number: [id number] Berna MD: Raffi Elliott M.D. Measurements Intervals [place] Rate: 105 P: 88 TN: 162 QRS: 111 QRSD: 82 T: 39 QT: 335 QTc: 444 Interpretive Statements SINUS TACHYCARDIA POSSIBLE RIGHT ATRIAL ENLARGEMENT [0.25mV P WAVE] RIGHT VENTRICULAR HYPERTROPHY [SOME/ALL OF: PROMINENT R IN V1, LATE TRANSITION, RAD, GRACIA, SSS] NONSPECIFIC ST & T-WAVE ABNORMALITY Compared to ECG 04/23/2021 09:19:35 Right ventricular hypertrophy now present Atrial abnormality now present T-wave abnormality now present Sinus rhythm no longer present Right-axis deviation no longer present Electronically Signed On 05-17-2021 12:13:51 CDT by Raffi Elliott M.D. [id number] f
--- NOTE | 2021-05-17 01:07 | ED_ITS ---
HPI - SOB/Dyspnea General: Chief Complaint: Shortness of Breath/Dyspnea Stated Complaint: SOB Time Seen by Provider: 05/17/21 01:02 Source: patient and EMS Mode of arrival: EMS Limitations: no limitations History of Present Illness: HPI Narrative: 61-year-old male has a history of high blood pressure along with COPD and congestive heart failure states that over the last 2 days has had increasing shortness of breath with his dyspnea much worse tonight. He is on 2 L at baseline states that he was desatting on that 2 L. Patient does have audible rales and wheezing and tachypnea. He denies any fever. Denies any cough or chest pain. Denies any worsening improving factors. Associated symptoms: Deny abdominal pain, chest pain, fever(s), nausea or vomiting Review of Systems Const: Denies: fever(s), chills, body aches or change in appetite Eyes: Denies: blurry vision or eye discomfort ENMT: Denies: throat pain or dental pain Card: Denies: chest pain Resp: Reports: dyspnea, non-productive cough and wheezing GI: Denies: abdominal pain, nausea, vomiting or diarrhea : Denies: dysuria Musc: Denies: neck pain or back pain Skin/Breast: Denies: rash Neuro: Denies: headache(s) Psych: Denies: depression Sheldon/Lymph: Denies: easy bruising All/Imm: Denies: urticaria PFSH ED PFSH: Medical History Atherosclerotic heart disease of [place] coronary artery with other forms of angina pectoris Atypical chest pain Cardiac arrhythmia COPD (chronic obstructive pulmonary disease) Coronary artery disease Crohn disease Fatigue Hyperlipemia Hypertension Lung cancer Pancreatitis PVD (peripheral vascular disease) Surgical History H/O circumcision H/O colonoscopy (04/29/20) sigmoid diverticulosis H/O esophagogastroduodenoscopy (04/29/20) mild gastritis H/O heart artery stent History of appendectomy History of lung surgery Hx of tonsillectomy Family History Mother CAD (coronary artery disease) Diabetes Father CAD (coronary artery disease) Cancer Dementia Diabetes Sister CAD (coronary artery disease) Chronic kidney disease (CKD) Diabetes Lung disease Brother Cancer Lung disease Diabetes Denies family history of Clotting disorder Suicide Anesthesia complication Bleeding disorder Stroke Social History Alcohol intake: never Household members: spouse Marital status: Current occupational status: disabled History of recent travel: Yes ([employer]) Out of state: No Out of country: No Physical Exam Const: COMMON NORMALS: patient oriented x3 GENERAL APPEARANCE: in distress HENMT: COMMON NORMALS: normocephalic and atraumatic HEAD & SCALP: normocephalic and atraumatic Eye: COMMON NORMALS: Equal, round and reactive pupils present and EOMs intact bilaterally PUPIL: Yes Equal, round and reactive pupils present Neck/C-Spine: COMMON NORMALS: full ROM and supple Chest: COMMONS NORMALS: normal inspection of the chest and normal palpation of entire chest wall Resp: EFFORT & INSPECTION: Yes tachypneic and Yes respiratory distress AUSCULTATION: rales Cardio: COMMON NORMALS: regular rate, regular rhythm and No murmurs present (Cardio) RATE: regular rate RHYTHM: regular rhythm GI: COMMON NORMALS: Normal to inspection, nondistended, normoactive bowel sounds present, Soft to palpation, non-tender and no masses PALPATION: Yes Soft to palpation Extremity: COMMON NORMALS: normal to inspection and full ROM Neuro: COMMON NORMALS: patient oriented x3, moves all extremities and no focal motor deficits Psych: COMMON NORMALS: mental status grossly normal, Normal thought process present and cooperative THOUGHT PROCESS: Normal thought process present Skin: COMMON NORMALS: no rashes or lesions noted and no wounds GENERAL SKIN EXAM: no rashes or lesions noted Course Vital Signs: Vital signs: Vital Signs Temperature 97.5 F L 05/17/21 01:04 Pulse Rate 84 05/17/21 02:25 Respiratory Rate 20 H 05/17/21 02:20 Blood Pressure 137/74 05/17/21 02:01 Pulse Oximetry 96 05/17/21 02:20 MDM - SOB/Dyspnea MDM Narrative: Medical decision making narrative: Patient presents here with COPD exacerbation. He feels much improved after breathing treatments and is no longer in any distress and is 96% here on his 2 L. X-ray shows no pneumonia and his Covid is negative. Will prescribe him prednisone for home. He has breathing treatments at home. He is to follow-up his PCP in 3 to 5 days return if worsening. Lab Data: Labs: Lab Results 05/17/21 05/17/21 05/17/21 Range/Units 01:00 01:00 01:00 WBC 15.3 H (4.0-10.0) 10^3/ uL RBC 4.75 (4.1-5.3) 10^6/u L Hgb 14.8 (11.7-16.6) g/dL Hct 44.3 (42.0-52.0) % MCV 93.3 (80-94) fL MCH 31.2 (28.0-34.0) pg MCHC 33.4 (30.0-36.0) g/dL RDW 14.1 (12.1-15.1) % Plt Count 250 (130-400) 10^3/c mm MPV 10.4 (7.4-10.4) fL Neut % (Auto) 82.9 % Lymph % (Auto) 9.7 % Placer % (Auto) 5.6 % Eos % (Auto) 0.7 % Baso % (Auto) 0.8 % Neut # (Auto) 12.71 H (1.8-7.7) 10^3/u L Lymph # (Auto) 1.5 (0.8-4.8) 10^3/u L Placer # (Auto) 0.9 (0.2-0.9) 10^3/u L Eos # (Auto) 0.1 (0.0-0.8) 10^3/u L Baso # (Auto) 0.1 (0.0-0.1) 10^3/u L Nucleated RBC % (a uto) 0 % Nucleated RBCs # 0.0 /100WBC Specimen Type Sample Site ABG pH (7.35-7.45) ABG pCO2 (35-45) mmHg ABG pO2 (80.0-100.0) mmH g ABG HCO3 (22-26) mmol/L ABG Base Excess (-2.0-2.0) mmol/ L Jose Carlos Test Hematocrit (42-52) % Hgb O2 Saturation (95-100) % Carboxyhemoglobin (0.4-20.1) %THgb Methemoglobin (0.4-1.5) % Total Hemoglobin (14-18) g/dL O2 Delivery Device O2 Liters/Min % Juice Tester ID Sodium 140 (136-145) mmol/L Potassium 3.8 (3.5-5.1) mmol/L Chloride 104 (98-107) mmol/L Carbon Dioxide 22 (22-29) mmol/L Anion Gap 17.8 (5-19) BUN 11 (8-23) mg/dL Creatinine 0.7 (0.7-1.2) mg/dL GFR Calculation 113.9 (90-130) mL/min Glucose 139 H (65-115) mg/dL Calculated Osmolal ity 292 (285-295) mOsm/k g Calcium 9.4 (8.5-10.5) mg/dL Total Bilirubin 0.5 (0.15-1.2) mg/dL AST 13 (0-40) U/L ALT < 5 (0-41) U/L Alkaline Phosphata se 70 (40-130) IU/L Troponin T Baselin e 18 H (0-15) ng/L NT-Pro-B Natriuret Pep 607 H (0-125) pg/mL Total Protein 6.7 (6.6-8.7) g/dL Albumin 4.4 (3.5-5.2) g/dL Globulin 2.3 (1.3-4.6) g/dL SARS-CoV-2 Ag (Rap id) (Negative) 05/17/21 05/17/21 Range/Units 01:11 01:20 WBC (4.0-10.0) 10^3/ uL RBC (4.1-5.3) 10^6/u L Hgb (11.7-16.6) g/dL Hct (42.0-52.0) % MCV (80-94) fL MCH (28.0-34.0) pg MCHC (30.0-36.0) g/dL RDW (12.1-15.1) % Plt Count (130-400) 10^3/c mm MPV (7.4-10.4) fL Neut % (Auto) % Lymph % (Auto) % Placer % (Auto) % Eos % (Auto) % Baso % (Auto) % Neut # (Auto) (1.8-7.7) 10^3/u L Lymph # (Auto) (0.8-4.8) 10^3/u L Placer # (Auto) (0.2-0.9) 10^3/u L Eos # (Auto) (0.0-0.8) 10^3/u L Baso # (Auto) (0.0-0.1) 10^3/u L Nucleated RBC % (a uto) % Nucleated RBCs # /100WBC Specimen Type Arterial Sample Site Radial, right ABG pH 7.44 (7.35-7.45) ABG pCO2 33.7 L (35-45) mmHg ABG pO2 66.0 L (80.0-100.0) mmH g ABG HCO3 23.0 (22-26) mmol/L ABG Base Excess -0.5 (-2.0-2.0) mmol/ L Jose Carlos Test Pos Hematocrit 45.8 (42-52) % Hgb O2 Saturation 91.4 L (95-100) % Carboxyhemoglobin 2.9 (0.4-20.1) %THgb Methemoglobin 0.8 (0.4-1.5) % Total Hemoglobin 14.9 (14-18) g/dL O2 Delivery Device Nc O2 Liters/Min 2.0 % Juice Tester ID ellpe Sodium (136-145) mmol/L Potassium (3.5-5.1) mmol/L Chloride (98-107) mmol/L Carbon Dioxide (22-29) mmol/L Anion Gap (5-19) BUN (8-23) mg/dL Creatinine (0.7-1.2) mg/dL GFR Calculation (90-130) mL/min Glucose (65-115) mg/dL Calculated Osmolal ity (285-295) mOsm/k g Calcium (8.5-10.5) mg/dL Total Bilirubin (0.15-1.2) mg/dL AST (0-40) U/L ALT (0-41) U/L Alkaline Phosphata se (40-130) IU/L Troponin T Baselin e (0-15) ng/L NT-Pro-B Natriuret Pep (0-125) pg/mL Total Protein (6.6-8.7) g/dL Albumin (3.5-5.2) g/dL Globulin (1.3-4.6) g/dL SARS-CoV-2 Ag (Rap id) Negative (Negative) Imaging Data^: CXR: Attestation: I personally reviewed and interpreted this imaging study as follows: Radiologist's impression: No acute abnormality EKG Data^: EKG 1: Attestation: I personally reviewed and interpreted this EKG as follows: EKG Interpretation Date: 05/17/21 EKG interpretation time: 01:10 Interpretation: sinus tach hr [address] or t wave abnormalities qrs 82 qtc 396 Discharge Plan Discharge Patient Disposition: Home Clinical Impression: Bronchitis Condition: Stable Prescriptions: New cephalexin 500 mg capsule 500 mg PO TID 7 Days Qty: 21 RF: 0 prednisone 50 mg tablet 50 mg PO DAILY Qty: 5 RF: 0 No Action carvedilol 25 mg tablet 12.5 mg PO BID Qty: 90 RF: 3 amlodipine 10 mg tablet 10 mg PO DAILY@22 RF: 0 Hold Instructions: Resume on 04/24/21. Patient to call the office tomorrow with his blood pressure. He will be advised about the blood pressure medication at that time ranolazine [Ranexa] 1,000 mg tablet extended release 12 hr 1,000 mg PO BID RF: 0 nitroglycerin [Nitrostat] 0.4 mg tablet, sublingual 0.4 mg SUBLINGUAL Q5M PRN (Reason: Chest Pain) RF: 0 atorvastatin 80 mg tablet 80 mg PO DAILY@22 RF: 0 guaifenesin 400 mg tablet 400 mg PO Q4H PRN (Reason: Congestion) RF: 0 cholecalciferol (vitamin D3) 2,000 unit tablet 2,000 unit PO DAILY@22 RF: 0 albuterol sulfate [ProAir HFA] 90 mcg/actuation HFA aerosol inhaler 2 puff INHALATION QID PRN (Reason: Shortness Of Breath) RF: 0 clopidogrel 75 mg tablet 75 mg PO DAILY@22 RF: 0 tamsulosin 0.4 mg capsule 0.4 mg PO DAILY@22 RF: 0 aspirin 81 mg tablet,delayed release (DR/EC) 81 mg PO DAILY@22 RF: 0 Spiriva Respimat 2.5 mcg/actuation mist 2 puff INHALATION QAM RF: 0 budesonide-formoterol 160-4.5 mcg/actuation HFA aerosol inhaler 2 puff INHALATION BID RF: 0 montelukast 10 mg tablet 10 mg PO DAILY@22 RF: 0 hydralazine 100 mg tablet 100 mg PO TID Qty: 90 RF: 5 Hold Instructions: Resume on 04/24/21. Patient to call our office tomorrow in the morning with his blood pressure. Instructions on the blood pressure medication will be given at that time ipratropium-albuterol 0.5 mg-3 mg(2.5 mg base)/3 mL Solution For Nebulization 3 ml INHALATION Q6H PRN (Reason: Shortness Of Breath) RF: 0 albuterol sulfate 2.5 mg /3 mL (0.083 %) Solution For Nebulization 2.5 mg INHALATION Q6H PRN (Reason: Shortness Of Breath) RF: 0 ropinirole 3 mg Tablet 3 mg PO DAILY@22 RF: 0 isosorbide mononitrate 60 mg Tablet Extended Release 24 Hr 90 mg PO DAILY@22 RF: 0 Hold Instructions: Resume on 04/24/21. Patient to call our office tomorrow in the morning with his blood pressure. Instructions on the blood pressure medication will be given at that time naproxen sodium [Aleve] 220 mg Tablet 440 - 660 mg PO PRN RF: 0 mirtazapine 45 mg Tablet 45 mg PO DAILY@22 RF: 0 hydrocodone-acetaminophen 7.5-325 mg tablet 1 tab PO Q6H PRN (Reason: Pain) RF: 0 Discharge Orders: Discharge ED (Routine); Ordered 05/17/21 Ordered By: Janae Ruffin Referrals: Sierra Muse MD [Primary Care Provider] - 1-3 days Discharge Diet: Advance as tolerated Discharge Activity: Resume usual activity Patient Instructions: Bronchitis (Acute) - Adult Coding Level of Care Code ED Cloth Desizing Range Operator Chief for Chg Fwd Exam Comprehensive
[2021-05-17 01:16] LABS: Basophils # 0.1 10^3/uL (0.0-0.1); Basophils % 0.8 %; Eosinophils # 0.1 10^3/uL (0.0-0.8); Eosinophils % 0.7 %; Hematocrit 44.3 % (42.0-52.0); Hemoglobin 14.8 g/dL (11.7-16.6); Lymphocytes # 1.5 10^3/uL (0.8-4.8); Lymphocytes % 9.7 %; Mean Corpuscular HGB Conc 33.4 g/dL (30.0-36.0); Mean Corpuscular Hemoglobin 31.2 pg (28.0-34.0); Mean Corpuscular Volume 93.3 fL (80-94); Mean Platelet Volume 10.4 fL (7.4-10.4); Monocytes # 0.9 10^3/uL (0.2-0.9); Monocytes % 5.6 %; Neutrophils # 12.71 10^3/uL (1.8-7.7); Neutrophils % 82.9 %; Nucleated Red Blood Cells % 0 %; Platelet Count 250 10^3/cmm (130-400); Red Blood Count 4.75 10^6/uL (4.1-5.3); Red Cell Distribution Width 14.1 % (12.1-15.1); White Blood Count 15.3 10^3/uL (4.0-10.0)
[2021-05-17] MEDS: ipratropium-albuterol 3 mL Neb INHALATION (01:21)
[2021-05-17 01:29] LABS: ABG PCO2 33.7 mmHg (35-45); ABG PH Result 7.44 (7.35-7.45); Arterial Blood Gas Hematocrit 45.8 % (42-52); Base Excess ABG -0.5 mmol/L (-2.0-2.0); Blood Gas Allen Test Pos; Blood Gas Sample Site Radial, right; Blood Gas Sample Type Arterial; Carboxyhemoglobin 2.9 %THgb (0.4-20.1); HGB O2 Sat 91.4 % (95-100); Methemoglobin 0.8 % (0.4-1.5); Oxygen Device NC; Total Hemoglobin 14.9 g/dL (14-18)
[2021-05-17 01:37] LABS: Troponin(5th) Baseline 18 ng/L (0-15)
[2021-05-17 01:40] LABS: SARS Covid-2 Antigen Negative (Negative)
[2021-05-17 01:44] LABS: Alanine Aminotransferase < 5 U/L (0-41); Albumin Level 4.4 g/dL (3.5-5.2); Alkaline Phosphatase 70 IU/L (40-130); Aspartate Amino Transferase 13 U/L (0-40); Blood Urea Nitrogen 11 mg/dL (8-23); Calcium 9.4 mg/dL (8.5-10.5); Carbon Dioxide 22 mmol/L (22-29); Chloride 104 mmol/L (98-107); Globulin 2.3 g/dL (1.3-4.6); Glomerular Filtration Rate 113.9 mL/min (90-130); Glucose 139 mg/dL (65-115); NT Pro B Type Natriuretic Pept 607 pg/mL (0-125); Osmolality Calculated 292 mOsm/kg (285-295); Sodium 140 mmol/L (136-145); Total Bilirubin 0.5 mg/dL (0.15-1.2); Total Protein 6.7 g/dL (6.6-8.7)
[2021-05-17 01:47] LABS: Anion Gap 17.8 (5-19); Potassium 3.8 mmol/L (3.5-5.1)
[2021-05-17 04:08] LABS: Troponin 5 2HR 15.44 ng/L (0-15)
[2021-05-17 04:19] LABS: Troponin 5 2HR Delta -2.56 ABS# (0-10)
== END 2021-05-17 05:42 | disposition home or self-care (01) ==
PROVIDERS: Emergency Provider Emergency Medicine; PCP Family Medicine
DX: J40 Bronchitis, not specified as acute or chronic (principal); Z79.02 Long term (current) use of antithrombotics/antiplatelets; Z79.82 Long term (current) use of aspirin; I25.10 Atherosclerotic heart disease of native coronary artery without angina pectoris; J44.9 Chronic obstructive pulmonary disease, unspecified; E78.5 Hyperlipidemia, unspecified; I10 Essential (primary) hypertension; Z85.118 Personal history of other malignant neoplasm of bronchus and lung; Z20.822 Contact with and (suspected) exposure to COVID-19
CPT/HCPCS: 36415; 36600; 71045; 80053; 82805; 83880; 84484; 85025; 87426; 93005; 94640; 96374; 99284; J2930; J7611

== ENCOUNTER → 2021-09-29 17:04 | Outpatient (BNVA) | payer OTHER, SELFPAY | PROVIDERS: PCP Family Medicine; Visit Provider Nurse Practitioner Family | DX: I25.118 Atherosclerotic heart disease of native coronary artery with other forms of angina pectoris (principal); I10 Essential (primary) hypertension | CPT/HCPCS: 80048; 85025; 85379 ==

== ENCOUNTER 2022-01-26 14:45 | Outpatient (CLI) | payer OTHER, MEDICAID, SELFPAY ==
--- NOTE | 2022-01-26 15:00 | CT_ITS ---
WS: [id number] CT CHEST ANGIOGRAPHY WITH REFORMATS HISTORY: R07.89 - Other chest pain, history of lung cancer and LEFT pneumonectomy. TECHNIQUE: Contiguous axial images are obtained through the chest during arterial injection of intrav enous contrast. Images are reconstructed to evaluate the pulmonary arteries. MIP imaging also reviewe d. All CT scans at [facility] use at least one of these dose optimization techniques: automat ed exposure control; mA and/or kV adjustment per patient size (includes targeted exams where dose is matched to clinical indication); or iterative reconstruction. CONTRAST: Omnipaque 350; 95 mL IV. DLP: 528.80 mGy.cm COMPARISON: 04/22/2021 Marked displacement of the mediastinal structures into the LEFT thorax due to a LEFT pneumonectomy. L ungs are hyperexpanded with changes of emphysema. Benign granuloma in the RIGHT lower lung field. Sma ll amount of pleural thickening in the LEFT thorax. There is very good opacification of the pulmonary arteries. No filling defects or emboli are identified. Heart size is normal. No pericardial effusion . No adenopathy. The overall configuration and position of the heart is similar to the prior examinat ion. Mild scattered coronary artery atherosclerotic calcifications. No mediastinal or hilar lymph nodes. LEFT adrenal gland adenoma measures 2.1 x 1.6 cm. There is a sma ller low-attenuation mass in the RIGHT adrenal gland. No osteoblastic or osteolytic bone disease. CT/CT angio chest PE protcl [id number] IMPRESSION: 1. No pulmonary embolism. 2. Status post LEFT pneumonectomy with shift of the midline structures into th e LEFT thorax. Similar configuration of the heart and arteries since the prior study of 01/29/2021. 3. Moderate emphysema.
[2022-01-26] MEDS: iohexol 350 mg/mL 100 mL Btl IV (15:46)
[2022-01-26 15:49] LABS: Blood Urea Nitrogen 10 mg/dL (8-23); Glomerular Filtration Rate 85.2 mL/min (90-130)
== END 2022-01-26 14:46 | disposition home or self-care (01) ==
LOC: RAD 14:53
PROVIDERS: PCP Family Medicine; Visit Provider Nurse Practitioner Family
DX: R07.89 Other chest pain (principal); J43.9 Emphysema, unspecified; Z85.118 Personal history of other malignant neoplasm of bronchus and lung
CPT/HCPCS: 71275; 82565; 84520

== ENCOUNTER → 2022-02-05 09:16 | Outpatient (BNVA) | payer OTHER, MEDICAID, SELFPAY | PROVIDERS: PCP Family Medicine; Visit Provider Internal Medicine Cardiovascular Disease | DX: I25.118 Atherosclerotic heart disease of native coronary artery with other forms of angina pectoris (principal); J45.909 Unspecified asthma, uncomplicated; E78.2 Mixed hyperlipidemia; I10 Essential (primary) hypertension; Z85.118 Personal history of other malignant neoplasm of bronchus and lung; F17.210 Nicotine dependence, cigarettes, uncomplicated | CPT/HCPCS: 99213; 99215 ==

== ENCOUNTER 2022-02-10 23:25 | Inpatient (IN) | payer OTHER, MEDICARE, MEDICAID, SELFPAY ==
--- NOTE | 2022-02-10 23:25 | ECG_ITS ---
[facility] Test Date: 2022-02-10 Pat Name: Jose Armando Estrada Department: Room: Gender: Male Stage Manager: : 1960 Requested By: Vincenzo Levin Order Number: [id number] Berna MD: Jeffry Huang M.D. Measurements Intervals [place] Rate: 127 P: 91 [place]: 128 QRS: 102 QRSD: 100 T: 0 QT: 246 QTc: 359 Interpretive Statements SINUS TACHYCARDIA POSSIBLE RIGHT VENTRICULAR HYPERTROPHY [SOME/ALL OF: PROMINENT R IN V1, LATE TRANSITION, RAD, GRACIA, SSS] INFERIOR MYOCARDIAL INFARCTION , POSSIBLY ACUTE [40+ ms Q WAVE AND/OR ST/T ABNORMALITY IN II/aVF] ACUTE PA INTERPRETATION BASED ON A DEFAULT AGE OF 40 YEARS Compared to ECG 05/17/2021 01:10:04 Myocardial infarct finding now present T-wave abnormality no longer present Electronically Signed On 02-11-2022 10:55:40 CDT by Jeffry Huang M.D. [id number]
--- NOTE | 2022-02-10 23:25 | XRR_ITS ---
PROCEDURE INFORMATION: Exam: XR Chest Exam date and time: 02/10/2022 11:25 PM Age: 62 years old Clinical indication: Chest pressure; Prior surgery; Surgery type: Coronary stents. Left lobectomy. ; Patient HX: C/O severe chest pain with diaphoresis. St elevation on ekg. History of lung cancer. ; Additional info: Stemi TECHNIQUE: Imaging protocol: XR of the chest. Views: 1 view. COMPARISON: CT angio chest PE protcl [id number] 01/26/2022 3:30 PM FINDINGS: Lungs: Severe emphysematous lung changes. Hyperinflation of the right lung. Left lung volume loss consistent with known left lower lobectomy. No focal airspace consolidation. Pleural spaces: Unremarkable. No pleural effusion. No pneumothorax. Heart/Mediastinum: Mediastinal shift to the left. Mild cardiomegaly. Bones/joints: Unremarkable. XR/XR chest 1V portable [id number] IMPRESSION: 1. Severe emphysematous lung disease changes. 2. No focal acute pulmonary disease. 3. Left lung volume loss consistent with lobectomy with significant leftward deviation of the mediastinum.
[2022-02-10 23:27] VITALS: BP 164/118; PULSE 129; RESP 33; O2SAT 86; BMI 18.6
--- NOTE | 2022-02-10 23:29 | ED_ITS ---
HPI - Chest Pain General: Stated Complaint: STEMI Time Seen by Provider: 02/10/22 23:29 Source: patient and EMS Mode of arrival: EMS Limitations: no limitations History of Present Illness: 62-year-old male who states he started having chest pain roughly an hour and a half before arrival patient called EMS because he is having severe substernal chest pain with diaphoresis patient is diaphoretic here and in distress been given 200 mics of fentanyl and was taken nitro at home states his pain is currently an 8 out of 10 he has some shortness of breath as well. Associated symptoms: Reports dyspnea; Deny abdominal pain, fever(s), nausea or vomiting Review of Systems Const: Denies: fever(s), chills, body aches or change in appetite Eyes: Denies: blurry vision or eye discomfort ENMT: Denies: throat pain or dental pain Card: Reports: chest pain Resp: Reports: dyspnea GI: Denies: abdominal pain, nausea, vomiting or diarrhea : Denies: dysuria Musc: Denies: neck pain or back pain Skin/Breast: Denies: rash Neuro: Denies: headache(s) Psych: Denies: depression Sheldon/Lymph: Denies: easy bruising All/Imm: Denies: urticaria PFSH ED PFSH: Medical History Angina pectoris Atherosclerotic heart disease of [place] coronary artery with other forms of angina pectoris Atypical chest pain Cardiac arrhythmia COPD (chronic obstructive pulmonary disease) Coronary artery disease Crohn disease Fatigue Hyperlipemia Hypertension Lung cancer Pancreatitis PVD (peripheral vascular disease) Surgical History H/O circumcision H/O colonoscopy (04/29/20) sigmoid diverticulosis H/O esophagogastroduodenoscopy (04/29/20) mild gastritis H/O heart artery stent History of appendectomy History of lung surgery Hx of tonsillectomy Family History Mother CAD (coronary artery disease) Diabetes Father CAD (coronary artery disease) Cancer Dementia Diabetes Sister CAD (coronary artery disease) Chronic kidney disease (CKD) Diabetes Lung disease Brother Cancer Lung disease Diabetes Denies family history of Clotting disorder Suicide Anesthesia complication Bleeding disorder Stroke Social History Smoking and tobacco status: current every day smoker Alcohol intake: never Household members: spouse Marital status: Current occupational status: disabled History of recent travel: Yes ([employer]) Out of state: No Out of country: No Physical Exam Const: COMMON NORMALS: patient oriented x3 and healthy appearing GENERAL APPEARANCE: in distress and ill appearing HENMT: COMMON NORMALS: normocephalic and atraumatic HEAD & SCALP: normocephalic and atraumatic Eye: COMMON NORMALS: Equal, round and reactive pupils present and EOMs intact bilaterally PUPIL: Yes Equal, round and reactive pupils present Neck/C-Spine: COMMON NORMALS: full ROM and supple Chest: COMMONS NORMALS: normal inspection of the chest and normal palpation of entire chest wall Resp: COMMON NORMALS: normal respiratory effort, No retractions, No use of accessory muscles and clear to auscultation bilaterally AUSCULTATION: clear to auscultation bilaterally Cardio: COMMON NORMALS: regular rhythm and No murmurs present (Cardio) RATE: tachycardic RHYTHM: regular rhythm GI: COMMON NORMALS: Normal to inspection, nondistended, normoactive bowel sounds present, Soft to palpation, non-tender and no masses PALPATION: Yes Soft to palpation Extremity: COMMON NORMALS: normal to inspection and full ROM Neuro: COMMON NORMALS: patient oriented x3, moves all extremities and no focal motor deficits Psych: COMMON NORMALS: mental status grossly normal, Normal thought process present and cooperative THOUGHT PROCESS: Normal thought process present Skin: COMMON NORMALS: no rashes or lesions noted and no wounds GENERAL SKIN EXAM: no rashes or lesions noted MDM - Chest Pain Medical Decision Making Patient presents with an ST elevation TX Receiving Specialist was activated patient is going to Receiving Specialist with Dr. Huang been stable while in the ER EKG Data EKG 1: I personally reviewed and interpreted this EKG as follows: EKG interpretation date: 02/10/22 EKG interpretation time: 23:25 Interpretation: sinus tach hr 127 st elevation ii, iii, avf qrs 100 qtc 321 Discharge Plan Discharge Patient Disposition: Admitted As Inpatient Clinical Impression: ST elevation (STEMI) myocardial infarction Condition: Stable Prescriptions: No Action metoprolol succinate 100 mg tablet extended release 24 hr 100 mg PO BID Qty: 180 3RF amlodipine 10 mg tablet 10 mg PO DAILY@22 0RF Hold Instructions: Resume on 04/24/21. Patient to call the office tomorrow with his blood pressure. He will be advised about the blood pressure medication at that time nitroglycerin [Nitrostat] 0.4 mg tablet, sublingual 0.4 mg SUBLINGUAL Q5M PRN (Reason: Chest Pain) 0RF atorvastatin 80 mg tablet 80 mg PO DAILY@22 0RF guaifenesin 400 mg tablet 400 mg PO Q4H PRN (Reason: Congestion) 0RF cholecalciferol (vitamin D3) 2,000 unit tablet 2,000 unit PO DAILY@22 0RF albuterol sulfate [ProAir HFA] 90 mcg/actuation HFA aerosol inhaler 2 puff INHALATION QID PRN (Reason: Shortness Of Breath) 0RF clopidogrel 75 mg tablet 75 mg PO DAILY@22 0RF tamsulosin 0.4 mg capsule 0.4 mg PO DAILY@22 0RF aspirin 81 mg tablet,delayed release (DR/EC) 81 mg PO DAILY@22 0RF Spiriva Respimat 2.5 mcg/actuation mist 2 puff INHALATION QAM 0RF budesonide-formoterol 160-4.5 mcg/actuation HFA aerosol inhaler 2 puff INHALATION BID 0RF montelukast 10 mg tablet 10 mg PO DAILY@22 0RF hydralazine 100 mg tablet 100 mg PO TID Qty: 90 5RF Hold Instructions: Resume on 04/24/21. Patient to call our office tomorrow in the morning with his blood pressure. Instructions on the blood pressure medication will be given at that time valsartan 160 mg tablet 160 mg PO DAILY Qty: 90 2RF ranolazine [Ranexa] 1,000 mg tablet extended release 12 hr 1,000 mg PO BID Qty: 180 1RF Rx Instructions: see pharmacy comments prednisone 50 mg tablet 50 mg PO DAILY Qty: 5 0RF ipratropium-albuterol 0.5 mg-3 mg(2.5 mg base)/3 mL Solution For Nebulization 3 ml INHALATION Q6H PRN (Reason: Shortness Of Breath) 0RF albuterol sulfate 2.5 mg /3 mL (0.083 %) Solution For Nebulization 2.5 mg INHALATION Q6H PRN (Reason: Shortness Of Breath) 0RF ropinirole 3 mg Tablet 3 mg PO DAILY@22 0RF isosorbide mononitrate 60 mg Tablet Extended Release 24 Hr 90 mg PO DAILY@22 0RF Hold Instructions: Resume on 04/24/21. Patient to call our office tomorrow in the morning with his blood pressure. Instructions on the blood pressure medication will be given at that time naproxen sodium [Aleve] 220 mg Tablet 440 - 660 mg PO PRN 0RF mirtazapine 45 mg Tablet 45 mg PO DAILY@22 0RF hydrocodone-acetaminophen 7.5-325 mg tablet 1 tab PO Q6H PRN (Reason: Pain) 0RF Referrals: Sierra Muse MD [Primary Care Provider] - Coding Level of Care Code ED Design Studio Consultant for Ronald Oneal
[2022-02-10] MEDS: clopidogrel 300 mg Tablet PO (23:31)
[2022-02-10] MEDS: heparin 5,000 unit/mL INJ 1 mL 4000 UNIT IVP (23:32)
[2022-02-10 23:33] VITALS: RESP 18; O2SAT 86
[2022-02-10] MEDS: morphine 4 mg/mL SDV 1 mL IVP (23:33)
[2022-02-10 23:34] VITALS: BP 168/115; PULSE 129; RESP 35; O2SAT 88
[2022-02-10] MEDS: ondansetron 2 mg/ML SDV 2 mL 4 MG IVP (23:34)
[2022-02-10] MEDS: nitroglycerin 0.4 mg sublingual Tablet SUBLINGUAL (23:34)
[2022-02-10] MEDS: sodium chloride 0.9% 1,000 ML 999 ML IV (23:34)
[2022-02-10 23:38] VITALS: BP 185/104; PULSE 135; RESP 37; O2SAT 88
[2022-02-10 23:40] VITALS: BP 167/112; PULSE 132; RESP 32; O2SAT 90
[2022-02-10 23:41] VITALS: BP 167/112; PULSE 132; RESP 28; O2SAT 89
--- NOTE | 2022-02-10 23:42 | XACV_ITS ---
Exam Room: 1 Ht: 178 cm Wt: 61 kg BSA: 1.73 m2 Gender: Male : 1960 Any Known Allergies: No known allergies Exam Priority: Routine Procedure(s): Procedure Description: Diagnostic procedure Procedure Description: PCI procedure Procedure Description: PTCA Procedure Description: Coronary Angiography Diagnostic Cath Status: Salvage Diagnostic Findings * Patient with known coronary artery disease and multiple previous stents the most recent of which was a circumflex stent. Patient has end-stage lung disease with history of lung cancer and one lung removed. Heavily calcified arteries and mitral annular calcification. Patient arrived as a STEMI alert. The right coronary artery is known to be chronically occluded. * Angiography reveals a chronically occluded right coronary artery. The left main coronary artery is normal. The LAD is a heavily calcified vessel but is patent. The circumflex is occluded with thrombus that is just past the ostium and within the stent. * Patient was in extremis in the emergency room. He was short of breath and clinically appeared to be in mild congestive heart failure. He was barely able to maintain saturations above 90% with a 100% nonrebreather mask. He was unable to lie flat. There were no advanced directives in the chart. He wished to proceed with angiography realizing the extreme risk of this procedure and the high probability of significant morbidity and mortality. Initially I felt we may need to intubate him given his inability to even approach a supine position from sitting straight upright. We were able to give him benzodiazepines and placed him on a wedge in the cardiac catheterization laboratory. Even gaining access via the right groin was difficult. I had spoken to the patient's brother prior to the procedure. His other family members were not available prior to the procedure. PCI Status: Salvage PCI LVEF Assessed: No PCI Indication: STEMI - Immediate PCI for STEMI Interventional Findings * Placement of the catheters was difficult secondary to a previous lung removal. A wire was placed down the circumflex. Balloon angioplasty was performed. Patient then went into atrial fibrillation with a rapid ventricular response. He was hemodynamically unstable. I did not perform ventriculography due to the unstable situation. Once the vessel was opened and good flow reestablished I terminated the procedure in an attempt to keep him alive. Just prior to moving to the ICU he began to have runs of ventricular tachycardia. I gave him 150 mg of amiodarone while still in the Interior Decorator Paperhanging. His chances of survival post procedure were low. I spoke to his brother and his who had arrived during the procedure.. Decision for PCI with Surgical Consult: No PCI for Multi-vessel Disease: No Conclusions 1. Chronically occluded right coronary stent thrombosis of the proximal circumflex with cardiogenic shock. Extreme shortness of breath due to end-stage COPD, continued tobacco abuse and prior lung removal. Angioplasty of the occluded circumflex successful. Recommendations * None. Diagnostic RX Recommendation: PCI w/o planned CABG Anticoagulation: Heparin Pressures Phase:Rest AO : 232 / 126 ( 166 ) @ 7:36:16 PM 175 / 116 ( 143 ) @ 7:36:16 PM 139 / 98 ( 116 ) @ 7:36:16 PM 150 / 113 ( 133 ) @ 7:36:16 PM Clinical Evaluation EBL: 5mL-10mL Procedural Details Pre-Procedure Time Out. Identified patient by full name and date of as verbalized by the patient/guarantor. Does the consent match the physician's order: N/A Emergent. Accurate & Complete Informed Consent: N/A Emergent. Inpatient/Outpatient History & Physical on Chart: N/A Emergent. If H&P is completed, is and addenduem needed: N/A; If yes, is the addendum complete: N/A. Visualize and Verify Site with Patient/Guarantor: N/A. Relevant Radiology Images available: N/A. Pre-op teaching completed and patient verbalized understanding. The risks, benefits, and alternatives of sedation and/or procedure were discussed by physician. The patient agrees to continue. Procedure started. [facility] Clinical Fraility Score: 4: Vulnerable. [employer] Indications: ACS <= 24 hours. Chest Pain Symptom Assessment: Typical Angina Symptoms. Cardiovascular Instability: Yes, if yes, Persistant Ischemic Symptoms. Correct patient, site and procedure confirmed by cath team. Current diagnosis: STEMI. PERRLA. Strong, equal hand provider network analyst bilaterally. Lungs clear x 5 lobes. IV Site on Arrival: 20 gauge in the left anticubital. IV Fluids: 0.9% NaCl at KVO. 0 mL infused prior to slabber. Oxygen started at 15liters/min via 100% non-rebreather mask. right groin was prepped with chloroprep then draped in the usual sterile fashion. Physician notified. Baseline sample Acquired. HR: 136 BPM. Physician arrived. Physician scrubbed in. Immediate Pre-Procedure Time Out. Correct Patient: Yes; Correct Procedure: Yes; Correct Site: Yes; Correct Patient Position: Yes; Correct Supplies: Yes; Dried Flammable Prep: Yes; Blood Products Available: N/A;. Lidocaine 1% infiltrated to the right groin. Admit Source: Emergency department. Arterial access obtained. PCI Indication: STEMI. 6 indian JR 4 guide catheter was inserted over the wire. Multiple views taken of RCA. Guide catheter out. 6 indian JL 4 guide catheter was inserted over the wire. Adrian guidewire was advanced through the guide catheter to lesion in the prox Circ. Inflation number : 1 A AB TREK 2.50X15 RX BALLOON was prepped and advanced across the Prox CX , then inflated to 8 THOMAS for 0:17 seconds. Balloon inserted to lesion in the prox circumflex. Inflation number: 2 The AB TREK 2.50X15 RX BALLOON was reinflated across the Prox CX, to 10 THOMAS for 0:17 seconds. Balloon out. Balloon inserted to lesion in the prox Circ. Inflation number : 3 A AB TREK 3.00X15 RX BALLOON was prepped and advanced across the Prox CX , then inflated to 6 THOMAS for 0:11 seconds. Inflation number: 4 The AB TREK 3.00X15 RX BALLOON was reinflated across the Prox CX, to 8 THOMAS for 0:07 seconds. Results checked. Inflation number: 5 The AB TREK 3.00X15 RX BALLOON was reinflated across the Prox CX, to 6 THOMAS for 0:15 seconds. Balloon out. Wire out. Results checked. Guide catheter out. A Suture was successful obtaining hemostatsis at the Right Femoral artery insertion site. Post Procedure: Pulses reassessed and unchanged. PERRLA. Strong, equal hand provider network analyst bilaterally. No VTE prophylaxis required. Medication's Wasted: Heparin = 1000 u. Medication's Wasted: Other = Versed 1 mg. Total IV fluids: 400 mL. PCI Indication: STEMI. Post-op diagnosis: STEMI. Complications: none. Estimated blood loss: 5mL-10mL. Responsiveness - Normal response to verbal stimuli; alert and oriented, PERRLA. Airway - Unaffected, no intervention required; spontaneous ventilation. Circulation: W/N/L, pulses unchanged. Nausea/Vomiting: No. Procedure completed. Patient transferred by bed to ICU. Vital chart was stopped. Access Site Site: Right Femoral artery Sheath Size: 6 Fr Hemostasis Method: Suture Hemostasis Success: Successful Procedure Medications Start: 11:57 PM Stop: 11:57 PM Medication: Versed Amount: 1 mg Route: I.V. Start: 12:01 AM Stop: 12:01 AM Medication: Zofran (ondansetron) Amount: 4 mg Route: I.V. I, the attending physician, have reviewed and verified all procedure medications. Yes, all medications given per verbal order Report Signatures Finalized by Dr. Jeffry Huang MD on 02/11/2022 09:10 AM
[2022-02-11] VITALS (39 sets, daily range): BP systolic 82–112; BP diastolic 69–85; PULSE 0–150; RESP 12–60; O2SAT 31–87
[2022-02-11 00:07] LABS: INR 1.05 (0.8-1.2)
[2022-02-11 00:31] LABS: Troponin(5th) Baseline 76 ng/L (0-15)
[2022-02-11 00:35] LABS: Basophils # 0.2 10^3/uL (0.0-0.1); Basophils % 1.2 %; Eosinophils # 0.3 10^3/uL (0.0-0.8); Eosinophils % 1.7 %; Hematocrit 47.4 % (42.0-52.0); Hemoglobin 15.9 g/dL (11.7-16.6); Lymphocytes # 4.2 10^3/uL (0.8-4.8); Lymphocytes % 27.3 %; Mean Corpuscular HGB Conc 33.5 g/dL (30.0-36.0); Mean Corpuscular Hemoglobin 31.2 pg (28.0-34.0); Mean Corpuscular Volume 93.1 fl (80-94); Mean Platelet Volume 10.4 fL (7.4-10.4); Monocytes # 0.9 10^3/uL (0.2-0.9); Monocytes % 5.9 %; Neutrophils # 9.83 10^3/uL (1.8-7.7); Neutrophils % 63.4 %; Nucleated Red Blood Cells % 0 %; Platelet Count 324 10^3/cmm (130-400); Red Blood Count 5.09 10^6/uL (4.1-5.3); Red Cell Distribution Width 13.2 % (12.1-15.1); White Blood Count 15.5 10^3/uL (4.0-10.0)
[2022-02-11 00:36] LABS: Alanine Aminotransferase 9 U/L (0-41); Albumin Level 4.7 g/dL (3.5-5.2); Alkaline Phosphatase 79 IU/L (40-130); Anion Gap 18.9 (5-19); Aspartate Amino Transferase 17 U/L (0-40); Blood Urea Nitrogen 11 mg/dL (8-23); Calcium 9.6 mg/dL (8.5-10.5); Carbon Dioxide 24 mmol/L (22-29); Chloride 104 mmol/L (98-107); Globulin 2.6 g/dL (1.3-4.6); Glucose 172 mg/dL (65-115); NT Pro B Type Natriuretic Pept 959 pg/mL (0-125); Osmolality Calculated 299 mOsm/kg (285-295); Potassium 3.9 mmol/L (3.5-5.1); Slide Review Slide Review Perform; Sodium 143 mmol/L (136-145); Total Bilirubin 0.2 mg/dL (0.15-1.2); Total Protein 7.3 g/dL (6.6-8.7)
--- NOTE | 2022-02-11 00:47 | P.HP_ITS ---
Providers/Chief Complaint Admitting Physician: Jeffry Huang MD Primary Care Provider: Sierra Muse MD Chief Complaint: STEMI History of Present Illness Jose Armando Estrada is a 62 year old male who presents to the hospital with chief complaint of chest pain. Reportedly patient's symptoms started roughly 90 minutes before his presentation to the ER. STEMI alert was called, Dr. Huang taken to the Structural Steel Equipment Erector, stent was placed in left circumflex, chronically occluded RCA detected. Hospitalist service was requested for postoperative care. When I evaluated the patient in the ICU he was on 15 L 100% nonrebreather mask, MAP of 74mmhg patient was showing mottling of skin around his umbilicus, bilateral knees, extremities were cold and clammy, patient is not arousable, saturating 87% , he was using his respiratory accessory muscles muscles, I alerted ICU nurses to prepare for intubation, conducted family meeting with Dr. Huang, his was not sure about his CODE STATUS and she was not able to make decisions. During our meeting I was notified by the ICU nurse that O2 saturations started dropping, patient became hypoxic, lost pulse. Chest compressions were started right away, I was able to intubate the patient using a gleidoscope, a lot of airway secretions were suctioned. CODE BLUE continued for more than 8 minutes, multiple doses of epinephrine were given along calcium c hloride and bicarb, his rhythm remained PEA. Dr. Huang spoke with his 1 more time after 8 minutes of CPR, decided to stop chest compressions. As per the cardiac cath team patient was using his respiratory sensory muscles during cardiac cath he was kept on nonrebreather mask, he was only given 1 mg of Ativan for the procedure. Review of Systems General: Reports: ROS unobtainable due to endotracheal tube Medications/Allergies Home Medications Medication Instructions Recorded Confirmed Last Taken Type albuterol sulfate 90 mcg/actuation 2 puff INHALATION QID PRN 10/31/19 02/05/22 04/28/20 History aerosol inhaler (ProAir HFA) amlodipine 10 mg tablet 10 mg PO DAILY@10/31/19 02/05/22 04/21/21 22:00 History aspirin 81 mg tablet,delayed 81 mg PO DAILY@10/31/19 02/05/22 04/21/21 22:00 History release atorvastatin 80 mg tablet 80 mg PO DAILY@10/31/19 02/05/22 04/21/21 22:00 History budesonide-formoterol HFA 160 2 puff INHALATION BID 10/31/19 02/05/22 04/21/21 22:00 History mcg-4.5 mcg/actuation aerosol inhaler cholecalciferol (vitamin D3) 50 2,000 unit PO DAILY@10/31/19 02/05/22 04/21/21 22:00 History mcg (2,000 unit) tablet clopidogrel 75 mg tablet 75 mg PO DAILY@10/31/19 02/05/22 04/21/21 22:00 History guaifenesin 400 mg tablet 400 mg PO Q4H PRN 10/31/19 02/05/22 04/21/21 22:00 History montelukast 10 mg tablet 10 mg PO DAILY@10/31/19 02/05/22 04/21/21 22:00 History nitroglycerin 0.4 mg sublingual 0.4 mg SUBLINGUAL Q5M PRN 10/31/19 02/05/22 01/29/21 History tablet (Nitrostat) tamsulosin 0.4 mg capsule 0.4 mg PO DAILY@10/31/19 02/05/22 04/21/21 22:00 History tiotropium bromide 2.5 2 puff INHALATION QAM 10/31/19 02/05/22 04/28/20 History mcg/actuation mist for inhalation (Spiriva Respimat) albuterol sulfate 2.5 mg INHALATION Q6H PRN 01/29/21 02/05/22 Unknown History hydrocodone 7.5 mg-acetaminophen 1 tab PO Q6H PRN 01/29/21 02/05/22 01/28/21 History 325 mg tablet ipratropium 0.5 mg-albuterol 3 mg 3 ml INHALATION Q6H PRN 01/29/21 02/05/22 Unknown History (2.5 mg base)/3 mL nebulization soln isosorbide mononitrate 60 mg 90 mg PO DAILY@01/29/21 02/05/22 04/21/21 22:00 History tablet,extended release 24 hr mirtazapine 45 mg tablet 45 mg PO DAILY@01/29/21 02/05/22 04/21/21 22:00 History naproxen sodium 220 mg tablet 440 - 660 mg PO PRN 01/29/21 02/05/22 01/28/21 History (Aleve) ropinirole 3 mg tablet 3 mg PO DAILY@22 01/29/21 02/05/22 04/21/21 22:00 History hydralazine 100 mg tablet 100 mg PO TID #90 tab 04/02/21 02/05/22 04/21/21 22:00 Rx prednisone 50 mg tablet 50 mg PO DAILY #5 tab 05/17/21 02/05/22 Unknown Rx ranolazine 1,000 mg 1,000 mg PO BID #180 tab 07/13/21 02/05/22 Unknown Rx tablet,extended release,12 hr (Ranexa) valsartan 160 mg tablet 160 mg PO DAILY #90 tab 09/29/21 02/05/22 Unknown Rx metoprolol succinate 100 mg 100 mg PO BID #180 tab 10/05/21 02/05/22 Unknown Rx tablet,extended release 24 hr Allergies Allergy/AdvReac Type Severity Reaction Status Date / Time No Known Allergies Allergy Verified 02/05/22 09:28 PFSH Acute PFSH: Medical History Angina pectoris Atherosclerotic heart disease of [place] coronary artery with other forms of angina pectoris Atypical chest pain Cardiac arrhythmia COPD (chronic obstructive pulmonary disease) Coronary artery disease Crohn disease Fatigue Hyperlipemia Hypertension Lung cancer Pancreatitis PVD (peripheral vascular disease) Surgical History H/O circumcision H/O colonoscopy (04/29/20) sigmoid diverticulosis H/O esophagogastroduodenoscopy (04/29/20) mild gastritis H/O heart artery stent History of appendectomy History of lung surgery Hx of tonsillectomy Family History Mother CAD (coronary artery disease) Diabetes Father CAD (coronary artery disease) Cancer Dementia Diabetes Sister CAD (coronary artery disease) Chronic kidney disease (CKD) Diabetes Lung disease Brother Cancer Lung disease Diabetes Denies family history of Clotting disorder Suicide Anesthesia complication Bleeding disorder Stroke Social History Smoking and tobacco status: current every day smoker Alcohol intake: never Household members: spouse Marital status: Current occupational status: disabled History of recent travel: Yes ([place]) Out of state: No Out of country: No Vitals/I&O/Wt Last Vital Signs Pulse 132 H 02/10/22 23:41 Resp 28 H 02/10/22 23:41 BP 167/112 02/10/22 23:41 Pulse Ox 89 L 02/10/22 23:41 Weight last 48 hrs Weight 58.967 kg Physical Exam Narrative: Patient was not arousable to painful stimuli Cardiac wheezing Bilateral breath sounds diminished in left lung base Skin mottling noted starting from umbilicus extending all the way up to his toes Cold and clammy skin Neuro exam limited Flat abdomen Mean arterial pressure 74 mmHg O2 saturation 87% on 15 L 100% nonrebreather mask postoperatively Data : 02/10/22 23:30 02/10/22 23:30 A&P Assessment and plan (1) STEMI (ST elevation myocardial infarction): Status: Acute Plan Patient after cardiac cath Family is at the bedside summary to be done by Dr. Huang Please review Dr. Huang's note for further details, I evaluated the patient postoperatively in the ICU and ran the code Attestations Medical Necessity Statement*: Patient Coding Level of Care Code Acute Digester for Ronald Oneal Diagnoses STEMI (ST elevation myocardial infarction) I21.3
--- NOTE | 2022-02-11 00:57 | PM.HP ---
Providers/Chief Complaint Admitting Physician: Jeffry Huang MD Primary Care Provider: Sierra Muse MD Chief Complaint: STEMI History of Present Illness Jose Armando Estrada is a 62 year old male who was brought to the emergency room as a STEMI alert. He is a seriously chronically ill man who typically sees Dr. Lacy. I saw him in the office the other day as an urgent add-on patient because of chest pain. He has a long history of coronary artery disease with stents placed to the LAD remotely. A little less than a year ago in April of last year he had a stent placed to the very proximal circumflex. 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 He has hypertension that is very poorly controlled. He states that he feels better when his blood pressure is high. He is on a long list of medications. He has had lung cancer and had 1 lung removed. He also has peripheral arterial disease. He continues to smoke and has severe COPD. He is on oxygen. When I saw him he was clearly having angina and I scheduled him for coronary angiography as an outpatient which was to take place a little less than 48 hours from now. He came to the emergency room this evening after having the onset of severe chest pain. He has ST segment elevation inferiorly with reciprocal changes anteriorly. Upon my arrival to the emergency room he was hypertensive and in extremis. He was sitting up having extreme difficulty breathing. He was diaphoretic and could not carry on a conversation. I spoke to him briefly before taking him to the cardiac catheterization laboratory. I also spoke to his brother. I told both of them that he was critically ill and that the chances of significant morbidity and mortality were fairly high. He was unable to be placed towards the supine position and requested to sit straight upward in order to breathe. I briefly asked him about intubation and he requested to be intubated if necessary. I told him that if we did intubate him given his underlying pulmonary status, we may never get him off the ventilator. He understands that. Review of Systems Narrative: Review of systems was not obtained due to the acute nature of the illness, his inability to breathe or speak. Medications/Allergies Home Medications Medication Instructions Recorded Confirmed Last Taken Type albuterol sulfate 90 mcg/actuation 2 puff INHALATION QID PRN 10/31/19 02/05/22 04/28/20 History aerosol inhaler (ProAir HFA) amlodipine 10 mg tablet 10 mg PO DAILY@10/31/19 02/05/22 04/21/21 22:00 History aspirin 81 mg tablet,delayed 81 mg PO DAILY@10/31/19 02/05/22 04/21/21 22:00 History release atorvastatin 80 mg tablet 80 mg PO DAILY@10/31/19 02/05/22 04/21/21 22:00 History budesonide-formoterol HFA 160 2 puff INHALATION BID 10/31/19 02/05/22 04/21/21 22:00 History mcg-4.5 mcg/actuation aerosol inhaler cholecalciferol (vitamin D3) 50 2,000 unit PO DAILY@10/31/19 02/05/22 04/21/21 22:00 History mcg (2,000 unit) tablet clopidogrel 75 mg tablet 75 mg PO DAILY@10/31/19 02/05/22 04/21/21 22:00 History guaifenesin 400 mg tablet 400 mg PO Q4H PRN 10/31/19 02/05/22 04/21/21 22:00 History montelukast 10 mg tablet 10 mg PO DAILY@10/31/19 02/05/22 04/21/21 22:00 History nitroglycerin 0.4 mg sublingual 0.4 mg SUBLINGUAL Q5M PRN 10/31/19 02/05/22 01/29/21 History tablet (Nitrostat) tamsulosin 0.4 mg capsule 0.4 mg PO DAILY@10/31/19 02/05/22 04/21/21 22:00 History tiotropium bromide 2.5 2 puff INHALATION QAM 10/31/19 02/05/22 04/28/20 History mcg/actuation mist for inhalation (Spiriva Respimat) albuterol sulfate 2.5 mg INHALATION Q6H PRN 01/29/21 02/05/22 Unknown History hydrocodone 7.5 mg-acetaminophen 1 tab PO Q6H PRN 01/29/21 02/05/22 01/28/21 History 325 mg tablet ipratropium 0.5 mg-albuterol 3 mg 3 ml INHALATION Q6H PRN 01/29/21 02/05/22 Unknown History (2.5 mg base)/3 mL nebulization soln isosorbide mononitrate 60 mg 90 mg PO DAILY@01/29/21 02/05/22 04/21/21 22:00 History tablet,extended release 24 hr mirtazapine 45 mg tablet 45 mg PO DAILY@01/29/21 02/05/22 04/21/21 22:00 History naproxen sodium 220 mg tablet 440 - 660 mg PO PRN 01/29/21 02/05/22 01/28/21 History (Aleve) ropinirole 3 mg tablet 3 mg PO DAILY@01/29/21 02/05/22 04/21/21 22:00 History hydralazine 100 mg tablet 100 mg PO TID #90 tab 04/02/21 02/05/22 04/21/21 22:00 Rx prednisone 50 mg tablet 50 mg PO DAILY #5 tab 05/17/21 02/05/22 Unknown Rx ranolazine 1,000 mg 1,000 mg PO BID #180 tab 07/13/21 02/05/22 Unknown Rx tablet,extended release,12 hr (Ranexa) valsartan 160 mg tablet 160 mg PO DAILY #90 tab 09/29/21 02/05/22 Unknown Rx metoprolol succinate 100 mg 100 mg PO BID #180 tab 10/05/21 02/05/22 Unknown Rx tablet,extended release 24 hr Allergies Allergy/AdvReac Type Severity Reaction Status Date / Time No Known Allergies Allergy Verified 02/05/22 09:28 PFSH Acute PFSH: Medical History Angina pectoris Atherosclerotic heart disease of [place] coronary artery with other forms of angina pectoris Atypical chest pain Cardiac arrhythmia COPD (chronic obstructive pulmonary disease) Coronary artery disease Crohn disease Fatigue Hyperlipemia Hypertension Lung cancer Pancreatitis PVD (peripheral vascular disease) Surgical History (Updated 02/11/22 @ 01:07 by Jeffry Huang MD) H/O circumcision H/O colonoscopy (04/29/20) sigmoid diverticulosis H/O esophagogastroduodenoscopy (04/29/20) mild gastritis H/O heart artery stent History of appendectomy History of lung surgery Hx of tonsillectomy Family History Mother CAD (coronary artery disease) Diabetes Father CAD (coronary artery disease) Cancer Dementia Diabetes Sister CAD (coronary artery disease) Chronic kidney disease (CKD) Diabetes Lung disease Brother Cancer Lung disease Diabetes Denies family history of Clotting disorder Suicide Anesthesia complication Bleeding disorder Stroke Social History Smoking and tobacco status: current every day smoker Alcohol intake: never Household members: spouse Marital status: Current occupational status: disabled History of recent travel: Yes ([place]) Out of state: No Out of country: No Vitals/I&O/Wt Last Vital Signs Pulse 132 H 02/10/22 23:41 Resp 28 H 02/10/22 23:41 BP 167/112 02/10/22 23:41 Pulse Ox 89 L 02/10/22 23:41 Weight last 48 hrs Weight 130 lb Physical Exam Narrative: GENERAL: In general he appears ill, diaphoretic having extreme difficulty breathing, using accessory muscles and is tachypneic HEENT: Exam within normal limits. NECK: Supple without jugular vein distention. The carotid upstroke is normal without bruits. BACK: Exam normal. LUNGS: Lack of breath sounds, prolonged expiratory phase, virtually no air movement. HEART: Irregular rate and rhythm, tachycardia ABDOMEN: Benign without organomegaly or tenderness. EXTREMITIES: No edema. NEUROLOGIC: Exam normal. SKIN: Unremarkable. Data : 02/10/22 23:30 02/10/22 23:30 A&P Assessment and plan (1) ST elevation (STEMI) myocardial infarction: Status: Acute (2) Angina pectoris: Status: Acute (3) Reactive airway disease: Status: Acute Qualifiers: Asthma severity: unspecified severity Asthma persistence: unspecified Asthma complication type: uncomplicated Qualified Code(s): J45.909 - Unspecified asthma, uncomplicated (4) Atherosclerotic heart disease of [place] coronary artery with other forms of angina pectoris: Status: Acute (5) Lung cancer: Status: Acute Qualifiers: Laterality: left Lung location: overlapping sites Qualified Code(s): C34.82 - Malignant neoplasm of overlapping sites of left bronchus and lung (6) Hyperlipemia: Status: Acute Qualifiers: Hyperlipidemia type: mixed hyperlipidemia Qualified Code(s): E78.2 - Mixed hyperlipidemia (7) Hypertension: Status: Acute Qualifiers: Hypertension type: essential hypertension Qualified Code(s): I10 - Essential (primary) hypertension (8) H/O heart artery stent: Status: Acute (9) History of lung surgery: Status: Acute Plan He will be taken to the cardiac catheterization laboratory under emergency circumstances. This will be an extremely difficult case due to the fact that he cannot lie flat. If we intubate him there is a high chance of not being able to get him off the ventilator. He is also at high risk for congestive heart failure, arrhythmias, cardiac arrest and due to this incident. This is most likely a circumflex lesion given his right coronary artery was occluded during the last angiogram. I did the best I could to explain this to him. He is having such difficulty breathing am not sure he understands entirely. I spoke at length to his brother. Attestations Medical Necessity Statement*: Needs urgent catheterization laboratory and ICU care for acute DE. Coding Level of Care Code New Pt Acute Benchroom [employer]ician for g Fwd Patient Type New History Comprehensive Exam Comprehensive Medical Decision Making High Complexity Diagnoses ST elevation (STEMI) myocardial infarction I21.3 Angina pectoris I20.9 Reactive airway disease J45.909 Asthma severity: unspecified severity Asthma persistence: unspecified Asthma complication type: uncomplicated Atherosclerotic heart disease of [place] coronary artery with other forms of angina pectoris I25.118 Lung cancer C34.82 Laterality: left Lung location: overlapping sites Hyperlipemia E78.2 Hyperlipidemia type: mixed hyperlipidemia Hypertension I10 Hypertension type: essential hypertension H/O heart artery stent Z95.5 History of lung surgery Z98.890
[2022-02-11 01:14] LABS: Arterial Blood Gas Hematocrit 49.1 % (42-52); Base Excess ABG -12.4 mmol/L (-2.0-2.0); Blood Gas Operator Identificat JB; Blood Gas Sample Site Not specified; Blood Gas Sample Type Arterial; Carboxyhemoglobin 3.6 %THgb (0.4-20.1); HCO3 ABG 22.6 mmol/L (22-26); HGB O2 Sat 77.1 % (95-100); Ionized Calcium Level - ABG 1.2 mmol/L (1.1-1.4); Methemoglobin 0.9 % (0.4-1.5); Oxygen Device NRB; Oxygen Saturation ABG 80.7; PO2 ABG 66.3 mmHg (80.0-100.0); Potassium Level - ABG 3.6 mmol/L (3.5-5.0)
[2022-02-11 01:15] LABS: ABG PH Result 6.95 (7.35-7.45)
--- NOTE | 2022-02-11 01:28 | PM.DDS ---
Discharge Providers DDS Date of Admission: 02/11/22 00:43 Date Summary Completed: 02/11/22 Attending Provider at Admission: Jeffry Huang MD Time of : 01:20 Attending Provider at Discharge: Jeffry Huang MD Pronouncing Clinician: Nidia Gomez Consults: Hospitalist Primary Care Provider: Sierra Muse MD DS Diagnoses Hospital Diagnoses (1) ST elevation (STEMI) myocardial infarction: Details from hospital stay: Patient was a seriously chronically ill 62-year-old man with underlying COPD and continued tobacco abuse. He has had lung cancer and had a lung removed. His pulmonary status is extremely poor at rest with pursed lip breathing and audible wheezing. I saw him in the office the other day when he was having angina. He has stents in his LAD and circumflex. His angina was not unstable but it had recurred since his last procedure several months ago. I scheduled him for an outpatient coronary angiogram which was to occur less than 48 hours from now. He came into the hospital earlier this evening with an acute inferior wall MD. He was in mild congestive heart failure. He was having extreme difficulty breathing. He was only able to sit up straight but was not able to lie flat. I spoke to him prior to attempting a procedure and he wanted to proceed with the angiogram. I briefly spoke to him about intubation but it was difficult to assess whether he wanted to be intubated. His was not here at the time. I spoke to his brother and he did not know if there was any kind of advanced directive. We therefore took the patient to the cardiac catheterization laboratory. His right is chronically occluded. His circumflex was occluded just past the ostium with and a previously placed stent. It was stent thrombosis. Due to the absence of one lung and the change in the position of the heart it was somewhat difficult to intubate the ostia of the coronary arteries. I was able to get a wire through the circumflex and performed balloon angioplasty. I was able to get the artery open with reasonably good flow. I did not restent the vessel. No ventriculogram was done due to the severe nature of his underlying health. During the procedure he went into atrial fibrillation with a rapid rate and then started having episodes of nonsustained ventricular tachycardia. I gave him a bolus of 150 mg of amiodarone. This was started at the end of the procedure. He was barely oxygenating at 90% or above at the time the procedure was completed. He was on 100% nonrebreather. When we took him to the ICU, he began to have more episodes of ventricular tachycardia and became hypotensive and somewhat mottled. His oxygen saturations dropped. It was then his showed up. She was unable to produce a advanced directive. She could not make a decision as to what to do. She finally asked us to intubate him. Upon preparation for intubation he had a cardiac arrest. He underwent CPR for some time and the standard ACLS protocol. Ultimately he did not survive this effort. I spoke to his in detail. His brother was also present. There was one other family member. They agreed with discontinuing the CPR efforts and ACLS protocol. (2) Angina pectoris: (3) Reactive airway disease: Qualifiers: Asthma severity: unspecified severity Asthma persistence: unspecified Asthma complication type: uncomplicated Qualified Code(s): J45.909 - Unspecified asthma, uncomplicated (4) Atherosclerotic heart disease of [place] coronary artery with other forms of angina pectoris: (5) Lung cancer: Qualifiers: Laterality: left Lung location: overlapping sites Qualified Code(s): C34.82 - Malignant neoplasm of overlapping sites of left bronchus and lung (6) Hyperlipemia: Qualifiers: Hyperlipidemia type: mixed hyperlipidemia Qualified Code(s): E78.2 - Mixed hyperlipidemia (7) Hypertension: Qualifiers: Hypertension type: essential hypertension Qualified Code(s): I10 - Essential (primary) hypertension (8) H/O heart artery stent: (9) History of lung surgery: Reason for Visit Reason for Visit STEMI Brief History: See above Summary Date and Time of Date of : 02/11/22 Time of : 01:20 Summary Summary: See above Additional Data Advance directives?: No Discharge Plan Discharge Patient Disposition: Prescriptions: No Action metoprolol succinate 100 mg tablet extended release 24 hr 100 mg PO BID Qty: 180 3RF amlodipine 10 mg tablet 10 mg PO DAILY@22 0RF Hold Instructions: Resume on 04/24/21. Patient to call the office tomorrow with his blood pressure. He will be advised about the blood pressure medication at that time nitroglycerin [Nitrostat] 0.4 mg tablet, sublingual 0.4 mg SUBLINGUAL Q5M PRN (Reason: Chest Pain) 0RF atorvastatin 80 mg tablet 80 mg PO DAILY@22 0RF guaifenesin 400 mg tablet 400 mg PO Q4H PRN (Reason: Congestion) 0RF cholecalciferol (vitamin D3) 2,000 unit tablet 2,000 unit PO DAILY@22 0RF albuterol sulfate [ProAir HFA] 90 mcg/actuation HFA aerosol inhaler 2 puff INHALATION QID PRN (Reason: Shortness Of Breath) 0RF clopidogrel 75 mg tablet 75 mg PO DAILY@22 0RF tamsulosin 0.4 mg capsule 0.4 mg PO DAILY@22 0RF aspirin 81 mg tablet,delayed release (DR/EC) 81 mg PO DAILY@22 0RF Spiriva Respimat 2.5 mcg/actuation mist 2 puff INHALATION QAM 0RF budesonide-formoterol 160-4.5 mcg/actuation HFA aerosol inhaler 2 puff INHALATION BID 0RF montelukast 10 mg tablet 10 mg PO DAILY@22 0RF hydralazine 100 mg tablet 100 mg PO TID Qty: 90 5RF Hold Instructions: Resume on 04/24/21. Patient to call our office tomorrow in the morning with his blood pressure. Instructions on the blood pressure medication will be given at that time valsartan 160 mg tablet 160 mg PO DAILY Qty: 90 2RF ranolazine [Ranexa] 1,000 mg tablet extended release 12 hr 1,000 mg PO BID Qty: 180 1RF Rx Instructions: see pharmacy comments prednisone 50 mg tablet 50 mg PO DAILY Qty: 5 0RF ipratropium-albuterol 0.5 mg-3 mg(2.5 mg base)/3 mL Solution For Nebulization 3 ml INHALATION Q6H PRN (Reason: Shortness Of Breath) 0RF albuterol sulfate 2.5 mg /3 mL (0.083 %) Solution For Nebulization 2.5 mg INHALATION Q6H PRN (Reason: Shortness Of Breath) 0RF ropinirole 3 mg Tablet 3 mg PO DAILY@22 0RF isosorbide mononitrate 60 mg Tablet Extended Release 24 Hr 90 mg PO DAILY@22 0RF Hold Instructions: Resume on 04/24/21. Patient to call our office tomorrow in the morning with his blood pressure. 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 [employer]g Fwd Patient Type New Diagnoses ST elevation (STEMI) myocardial infarction I21.3 Angina pectoris I20.9 Reactive airway disease J45.909 Asthma severity: unspecified severity Asthma persistence: unspecified Asthma complication type: uncomplicated Atherosclerotic heart disease of [place] coronary artery with other forms of angina pectoris I25.118 Lung cancer C34.82 Laterality: left Lung location: overlapping sites Hyperlipemia E78.2 Hyperlipidemia type: mixed hyperlipidemia Hypertension I10 Hypertension type: essential hypertension H/O heart artery stent Z95.5 History of lung surgery Z98.890
--- NOTE | 2022-02-11 01:47 | PC.NURSE ---
[facility] notified of patient . Spoke with Jennifer Soto. Ref. #[id number]
--- NOTE | 2022-02-11 02:08 | PC.NURSE ---
Addendum entered by Swathi Fine RN 02/11/22 03:06: Verbal order for levophed from MD Jason. Started at 0110 at 6mg/hr. verbal order to increase levophed gtt per Jason to 20mg/hr at 0114. levophed gtts changed at 0114. Addendum entered by Swathi Fine RN 02/11/22 02:34: Pt arrived to unit at 0059 with engineer geophysical laboratory staff present. MD Gomez informed of pt arrival at 0100. Pt agonal breaking 87 spo2 on 15L md ZAK made aware at 0102. Pt assessment done at 0105 made aware at 0105 that pt does not respond to pain. at bedside. Original Note: Pt arrived to unit at 0059. MD Gomez informed of pt arrival at 0100. Pt agonal breaking 87 spo2 on 15L md ZAK made aware at 0102. Pt does not respond to pain 0105.
--- NOTE | 2022-02-11 02:50 | PC.NURSE ---
Jennifer Soto with [facility] called at 0250 and released body. waiting on [facility] for final release.
--- NOTE | 2022-02-11 02:54 | PC.NURSE ---
[facility] called on 02/11/2022 @ 0128 for family
--- NOTE | 2022-02-11 03:11 | PC.NURSE ---
02/11/2022 @ 0311 Sasha with [facility] has released pt
--- NOTE | 2022-02-11 03:15 | PC.NURSE ---
[facility] in [place], [place] called at 0313 02/11/2022.
--- NOTE | 2022-02-11 03:43 | PC.NURSE ---
0340 all IV lines were pulled from pt and castorena cath was removed.
--- NOTE | 2022-02-11 04:42 | PC.NURSE ---
pt was picked up by [facility] at 0442 on 02/11/2022.
== END 2022-02-11 04:52 | disposition expired | DRG 250 ==
LOC: ER 23:34 → CCL 23:36 → ICU 02-11 00:43
PROVIDERS: Emergency Medicine; Internal Medicine; Admitting Provider Internal Medicine Cardiovascular Disease; Emergency Provider Emergency Medicine; PCP Family Medicine; Visit Provider Internal Medicine Cardiovascular Disease
PROC: 02703ZZ Dilation of Coronary Artery, One Artery, Percutaneous Approach (ICD-10-PCS; principal; 2022-02-10 23:50)
PROC: 02703ZZ Dilation of Coronary Artery, One Artery, Percutaneous Approach (ICD-10-PCS; 2022-02-10 23:50)
DX: T82.855A Stenosis of coronary artery stent, initial encounter (principal); I21.21 ST elevation (STEMI) myocardial infarction involving left circumflex coronary artery; K50.90 Crohn's disease, unspecified, without complications; I47.2 Ventricular tachycardia; Y71.8 Miscellaneous cardiovascular devices associated with adverse incidents, not elsewhere classified; I46.9 Cardiac arrest, cause unspecified; I25.118 Atherosclerotic heart disease of native coronary artery with other forms of angina pectoris; J44.9 Chronic obstructive pulmonary disease, unspecified; E78.2 Mixed hyperlipidemia; I11.0 Hypertensive heart disease with heart failure; I50.9 Heart failure, unspecified; Z85.118 Personal history of other malignant neoplasm of bronchus and lung; Z90.2 Acquired absence of lung [part of]; I73.9 Peripheral vascular disease, unspecified; F17.210 Nicotine dependence, cigarettes, uncomplicated; I48.91 Unspecified atrial fibrillation; I95.9 Hypotension, unspecified; Z99.81 Dependence on supplemental oxygen
CPT/HCPCS: 71045; 80051; 80053; 82330; 82805; 83880; 84484; 85025; 85610; 85730; 92920; 93005; 93454; 96360; 96374; 96375; 99152; 99153; 99285; C1725; C1769; C1887; C1894; J0171; J0282; J1644; J1940; J2250; J2270; J2405; J3010; J3490; J7030; Q9967